=== PATIENT | female | born 1980 | race Caucasian/White ===

== ENCOUNTER 2023-02-01 11:36 | Emergency (ER) | payer MEDICARE, MEDICAID, SELFPAY ==
[2023-02-01 11:46] VITALS: BP 152/82; PULSE 71; RESP 20; O2SAT 98
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
[2023-02-01] MEDS: Ibuprofen 600 MG TAB PO (12:04)
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
--- OUTSIDE RECORDS SUMMARY | 2023-02-01 12:12 | XMS_ITS | Continuity of Care Document ---
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[employer] Name Role Phone ABDIRAHMANXIAO ACE Primary Care Physician Encounter BVT Date(s): 03/15/22 - 03/15/[address] [address]- [phone] Encounter Diagnosis Peripheral edema(Discharge Diagnosis) - 03/15/22 Discharge Disposition: Home or Self Care Attending Physician: ALEX ABDUL Admitting Physician: ALEX ABDUL Allergies, Adverse Reactions, Alerts Substance Reaction Severity Status Pollen Mild Active varenicline Unknown Active Haldol Unknown Active Assessment and Plan Extracted from: Title:General Medical Problem *ED Author:ALEX ABDUL Date:03/15/22 History of Present Illness The patient presents with Edema . The onset was 10 days ago. The course/duration of symptoms is constant and worsening. Location: lower extremity. The character of symptoms is swelling. Kourtney is a 41-year-old female who presents emergency department with report of atraumatic swelling in both of her lower legs. She reports this started approximately 10 days ago. She states she has had swelling in her extremities in the past generally takes spironolactone for this. She called her primary care provider and was restarted on spironolactone. She reports it is not seeming to be effective at this time. She reports swelling in both her feet, ankles and up into her lower legs. She reports she was starting to get indentations from her sandals. Kourtney has had no fevers, chills, or episodes of sweating. She denies any cough, sinus congestion, or sore throat. She is having no chest pain or difficulty breathing. She denies any headache, dizziness, neck, back, or abdominal pain. She has had no nausea, vomiting, or diarrhea. She denies any urinary symptoms. She reports feeling excessively fatigued. She states her doctor told her that some of her medications might increase her appetite and have weight gain particularly the Tegretol. Active Problems (4) Bipolar 1 disorder Disease caused by 2019 novel coronavirus Edema PTSD (post-traumatic stress disorder) Home Medications (5) Active hydrOXYzine OLANZapine spironolactone , Oral TEGretol , QID Vitamin D 1000 Allergies: Haldol varenicline Pollen Social history: Kourtney reports she smokes cigarettes occasionally. She does not drink alcohol. She does not use illicit drugs. She is not currently employed.. Review of Systems Constitutional symptoms: Fatigue, no fever, no chills, no sweats. ENMT symptoms: No sore throat, no nasal congestion. Respiratory symptoms: No shortness of breath, no cough. Cardiovascular symptoms: Peripheral edema, No chest pain, Gastrointestinal symptoms: No abdominal pain, no nausea, no vomiting, no diarrhea. Genitourinary symptoms: No urinary urgency, frequency, or dysuria. There is no current hematuria.. Musculoskeletal symptoms: No neck pain., No back pain, Neurologic symptoms: No headache, no dizziness. Health Status Allergies: Allergic Reactions (Selected) Mild Pollen- No reactions were documented. Unknown Haldol- No reactions were documented. Varenicline- No reactions were documented.. Medications: (Selected) Documented Medications Documented OLANZapine: 0 Refill(s) TEGretol: QID, 0 Refill(s) Vitamin D 1000: 0 Refill(s) hydrOXYzine: 0 Refill(s) spironolactone: Oral, 0 Refill(s). Past Medical/ Family/ Social History Medical history: No active or resolved past medical history items have been selected or recorded.. Surgical history: No active procedure history items have been selected or recorded.. Family history: No family history items have been selected or recorded.. Social history: Social & Psychosocial History Social History Alcohol Never Substance Abuse Past Current, Marijuana, 1-2 times per month Tobacco 10 or more cigarettes (1/2 pack or more)/day in last 30 days Tobacco Use:. Electronic Cigarette/Vaping Electronic Cigarette Use: Never. Psychosocial History No active psychosocial history has been recorded . Problem list: Active Problems (4) Bipolar 1 disorder Disease caused by 2019 novel coronavirus Edema PTSD (post-traumatic stress disorder) . Physical Examination Vital Signs Vital Signs 03/15/2022 17:11 EDT Temperature Temporal Artery 36.7 DegC Peripheral Pulse Rate 94 bpm Respiratory Rate 17 br/min Systolic Blood Pressure 133 mmHg Diastolic Blood Pressure 98 mmHg HI SpO2 99 % . General: Alert, no acute distress, Kourtney is sitting on the hospital stretcher. She is awake and alert. Her skin is warm and dry. Her respirations are even and unlabored. She is able to speak in full sentences. She currently peers to be in no acute distress.. Skin: Warm, dry. Head: Normocephalic. Neck: Supple. Eye: Normal conjunctiva. Ears, nose, mouth and throat: Oral mucosa moist. Cardiovascular: Regular rate and rhythm, No murmur, Normal peripheral perfusion, There is bilateral peripheral 1+ pitting edema to the lower extremities involving the feet, ankle, pretibial regions. . Respiratory: Lungs are clear to auscultation, respirations are non-labored, breath sounds are equal. Gastrointestinal: Soft, Nontender. Back: Nontender. Neurological: Alert and oriented to person, place, time, and situation, normal speech observed, normal coordination observed. Psychiatric: Cooperative, appropriate mood & affect. Medical Decision Making Rationale: Pleasant 41-year-old female presenting with bilateral lower extremity edema, history of something similar in the past but not so significant now rising to her lower legs, pitting edema not responding to her normal spironolactone. She has had no respiratory symptoms. She has no abdominal pain. Plan at this time is for labs include CBC, chemistries, troponin, BNP, chest x-ray and EKG we will continue to follow as diagnostic data becomes available.. Documents reviewed: Emergency department nurses' notes, emergency department records. Electrocardiogram: Time 03/15/2022 18:53:00, rate 86, normal sinus rhythm. Results review: Lab results : Lab View 03/15/2022 18:41 EDT WBC 12.0 x10(3)/uL HI RBC 4.34 x10(6)/uL Hgb 11.8 gm/dL Hct 36.5 % MCV 84.1 fL MCH 27.2 pg MCHC 32.3 gm/dL RDW-CV 16.0 % HI Platelet 283 x10(3)/uL MPV 8.7 fL LOW Neutro Auto 62.2 % Lymph Auto 23.7 % Potter Auto 9.3 % Eos Auto 3.2 % Basophil Auto 0.8 % Immature Gran % 0.80 % NRBC Auto Pct 0.00 % Neutro Absolute 7.45 x10(3)/uL HI Lymph Absolute 2.84 x10(3)/uL Potter Absolute 1.11 x10(3)/uL HI Eos Absolute 0.38 x10(3)/uL Basophil Absolute 0.09 x10(3)/uL Immature Gran Absolute 0.09 x10(3)/uL NA NRBC Absolute 0.00 x10(3)/uL PT 12.0 second(s) INR 0.92 NA Activated PTT 27.9 second(s) Sodium Lvl 135 mmol/L LOW Potassium Lvl 3.8 mmol/L Chloride 99 mmol/L CO2 25 mmol/L AGAP 14.8 mmol/L BUN 17 mg/dL Creatinine 0.49 mg/dL LOW GFR NonAfrican South African 138 mL/min/1.73 m2 Glucose Lvl 159 mg/dL HI Calcium Lvl 10.0 mg/dL Total Protein 6.6 gm/dL Albumin Lvl 4.00 gm/dL Alk Phos 121 IntUnit/L HI ALT 16 IntUnit/L AST 10 IntUnit/L Bili Total <0.2 mg/dL Osmolality 275.0 mOsm/kg Troponin-T <0.010 ng/mL Pro-BNP 19.8 pg/mL HCG Qualitative Serum Negative . Radiology results: X-ray (ST) X-Ray: ?? XR Chest 2 Views ?? 03/15/22 19:22:54 EXAMINATION: XR Chest 2 Views CLINICAL HISTORY: SOB TECHNIQUE: 2 views of the chest. COMPARISON: 12/03/2021. FINDINGS: No new or enlarging airspace opacity. No effusion. Cardiac mediastinal silhouette is stable. No interval osseous change. IMPRESSION: Accounting for technique and body habitus no acute pathology is identified. Thank you for letting us participate in the care of this patient. If you are a health care provider and have any questions regarding this report, please contact the number below. For patients who have questions please contact the health care mgr that requested your imaging first. Electronically signed by: Shereen Newman MD, [facility] ([phone]), at 03/15/2022 7:22 PM ?? Signed By: SHEREEN MARTIN . Reexamination/ Reevaluation Notes: Labs been obtained and reviewed. CBC shows a total white blood cell count elevated at 12.0. Hemoglobin normal 11.8, hematocrit normal at 36.5, platelets normal at 283. Coagulation studies normal at 0.92. CMP normal minus a sodium 135, creatinine of 0.49, glucose 159, alk phos of 121. Troponin T was less than 0.010. EKG sinus without evidence of STEMI. proBNP 19.8, normal. Chest x-ray allowing for technique and body habitus was unremarkable. I reviewed the testing results with Kourtney. Discussed the uncertain etiology of her worsening peripheral edema. This may be multifactorial, peripheral vascular disease advised to get compression stockings. We will do a 2-day treatment of furosemide she will hold her spironolactone while on the furosemide and restart the spironolactone on Friday. She was advised to call her primary care provider on Friday for repeat evaluation. We discussed return precautions to the emergency department should any of her symptoms change or worsen. Plan at this time is for discharge home.. Impression and Plan Diagnosis Peripheral edema ([id number] R60.9, Discharge, Medical) Plan Condition: Stable. Disposition: Discharged: to home. Prescriptions: Launch prescriptions Pharmacy: Lasix 20 mg oral tablet (Prescribe): 1 cap(s), Oral, Daily, for 2 day(s), 2 cap(s), 0 Refill(s). Patient was given the following educational materials: Edema. Follow up with: XIAO IRENE The blood test today showed no evidence of heart problems or liver problems. The exact cause of the swelling in your feet is unknown but may be related to peripheral vascular disease. We will increase your water pill for 2 days, hold the spironolactone while on the furosemide. Call your primary care provider first thing Friday morning to arrange for a repeat evaluation. Please return directly to the emergency department should any of your symptoms change or worsen.. Counseled: Patient, Friend, Regarding diagnosis, Regarding diagnostic results, Regarding treatment plan, Regarding prescription, Patient indicated understanding of instructions. Future Appointments Future Scheduled Tests Radiology* XR Wrist 3 Views Min Rt 11/08/21 Functional Status 03/15/22 History of Fall in Last 3 Months Roche N o Recent Travel History No recent travel Family Member Travel History No recent t january COVID-19 Screening None Medications hydrOXYzine 0 Refill(s) Start Date: 08/23/21 Status: Ordered Lasix 20 mg oral tablet = 1 cap(s), Oral, Daily, # 2 cap(s), 0 Refill(s), Pharmacy: [id number] [facility] #, 1 cap(s)Oral Daily,x2 [...] Status Inform ant Bipolar 1 disorder(Confirmed) Active Disease caused by 2019 novel coronavirus(Confirmed) 1 12/03/21 Active Edema(Confirmed) Active PTSD (post-traumatic stress disorder)(Confirmed) Active 1Problem added by Rule (IC_COVID19_AUTO_PROBLEM) following SARS-CoV-2 (COVID- 19)/Flu/RSV (GeneXpert)from Nasal Swab collected on 03-DEC-2021 14:35:00 EST tested positive for COVID-19. Results Laboratory List Name Date APTT 03/15/22 Automated Differential Standard 03/15/22 CBC w/Diff Standard 03/15/22 Comprehensive Metabolic Panel Standard ( CMP Standard) 03/15/22 PT (PT/INR) 03/15/22 Test Serum Standard 03/15/22 Pro-BNP (BNP (proBNP)) 03/15/22 Troponin-T 03/15/22 Most recent to oldest [Reference Range]: 1 Activated PTT [26.0-40.0 second(s)] 27.9 second(s) (03/15/22:41 PM) NRBC Auto Pct [0.00-0.20 %] 0.00 % (03/15/22:41 PM) Creatinine [0.50-0.90 mg/dL] 0.49 mg/dL *LOW* (03/15/22:41 PM) INR 0.92 *NA* (03/15/22 PM) AGAP [10.0-18.0 mmol/L] 14.8 mmol/L (03/15/22:41 PM) Glucose Lvl [70-100 mg/dL] 159 mg/dL *HI* (03/15/22 PM) Hct [34.1-44.9 %] 36.5 % (03/15/2241 PM) Hgb [11.5-15.7 gm/dL] 11.8 gm/dL (03/15/22:41 PM) Lymph Auto [15.0-45.0 %] 23.7 % (03/15/22:41 PM) MCH [25.6-32.2 pg] 27.2 pg (03/15/22:41 PM) MCHC [32.3-36.5 gm/dL] 32.3 gm/dL (03/15/22:41 PM) MCV [79.4-94.8 fL] 84.1 fL (03/15/22:41 PM) Potter Auto [4.0-14.0 %] 9.3 % (03/15/2241 PM) MPV [9.4-12.4 fL] 8.7 fL *LOW* (03/15/22:41 PM) Neutro Auto [50.0-75.0 %] 62.2 % (03/15/22:41 PM) Osmolality [268.0-291.0 mOsm/kg] 275.0 m Osm/kg (03/15/22:41 PM) Platelet [150-400 x10(3)/uL] 283 x10(3)/ uL (03/15/22 6:41 PM) PT [11.0-14.5 second(s)] 12.0 second(s) (03/15/22 6:41 PM) RBC [3.93-5.22 x10(6)/uL] 4.34 x10(6)/uL (03/15/22 6:41 PM) Sodium Lvl [136-145 mmol/L] 135 mmol/L *LOW* (03/15/22 6:41 PM) Total Protein [6.6-8.7 gm/dL] 6.6 gm/dL (03/15/22 6:41 PM) Albumin Lvl [3.50-5.20 gm/dL] 4.00 gm/dL (03/15/22 6:41 PM) Alk Phos [35-105 IntUnit/L] 121 IntUnit/ L *HI* (03/15/22 6:41 PM) ALT [0-33 IntUnit/L] 16 IntUnit/L (03/15/22 6:41 PM) AST [0-32 IntUnit/L] 10 IntUnit/L (03/15/22 6:41 PM) Basophil Auto [0.0-2.0 %] 0.8 % (03/15/22 6:41 PM) Bili Total [0.0-1.3 mg/dL] <0.2 mg/dL (03/15/22 6:41 PM) CO2 [22-29 mmol/L] 25 mmol/L (03/15/22 6:41 PM) Eos Auto [0.0-8.0 %] 3.2 % (03/15/22 6:41 PM) WBC [4.0-10.0 x10(3)/uL] 12.0 x10(3)/uL *HI* (03/15/22 6:41 PM) BUN [6-23 mg/dL] 17 mg/dL (03/15/22 6:41 PM) Calcium Lvl [8.6-10.2 mg/dL] 10.0 mg/dL (03/15/22 6:41 PM) Chloride [98-107 mmol/L] 99 mmol/L (03/15/22 6:41 PM) Potassium Lvl [3.5-5.1 mmol/L] 3.8 mmol/ L (03/15/22 6:41 PM) Troponin-T [0.000-0.029 ng/mL] <0.010 ng /mL (03/15/22 6:41 PM) Lymph Absolute [1.20-3.70 x10(3)/uL] 2.8 4 x10(3)/uL (03/15/22 6:41 PM) Potter Absolute [0.20-0.40 x10(3)/uL] 1.11 x10(3)/uL *HI* (03/15/22 6:41 PM) Eos Absolute [0.04-0.54 x10(3)/uL] 0.38 x10(3)/uL (03/15/22 6:41 PM) NRBC Absolute [0.00-0.01 x10(3)/uL] 0.00 x10(3)/uL (03/15/22 6:41 PM) Neutro Absolute [1.56-6.13 x10(3)/uL] 7. 45 x10(3)/uL *HI* (03/15/22 6:41 PM) RDW-CV [11.7-14.4 %] 16.0 % *HI* (03/15/22 6:41 PM) Pro-BNP [0.0-125.0 pg/mL] 19.8 pg/mL (03/15/22 6:41 PM) GFR NonAfrican South African [>=60 mL/min/1.7 3 m2] 138 mL/min/1.73 m2 (03/15/22 6:41 PM) Immature Gran % [0.00-2.30 %] 0.80 % (03/15/22 6:41 PM) Immature Gran Absolute 0.09 x10(3)/uL *NA* (03/15/22 6:41 PM) HCG Qualitative Serum [Negative] Negativ e (03/15/22 6:41 PM) Basophil Absolute [0.00-0.10 x10(3)/uL] 0.09 x10(3)/uL (03/15/22 6:41 PM) Radiology Reports * Exam Date Time Procedure Performing Provider Status 03/15/22 6:48 PM XR Chest 2 Views Kailash, Rosalind; Auth (Jovi ified) Notes: (XR Chest 2 Views) Reason For Exam: SOB XR Chest 2 Views EXAMINATION: XR Chest 2 Views CLINICAL HISTORY: SOB TECHNIQUE: 2 views of the chest. COMPARISON: 12/03/2021. FINDINGS: No new or enlarging airspace opacity. No effusion. Cardiac mediastinal silhouette is stable. No interval osseous change. IMPRESSION: Accounting for technique and body habitus no acute pathology is identified. Thank you for letting us participate in the care of this patient. If you are a health care provider and have any questions regarding this report, please contact the number below. For patients who have questions please contact the health care mgr that requested your imaging first. Electronically signed by: Shereen Newman MD, [facility] ([phone]), at 03/15/2022 7:22 PM Final Dictated: 03/15/2022 7:22 pm SHEREEN MARTIN Signed (Electronic Signature): 03/15/2022 7:22 pm Signed by: SHEREEN MARTIN Vital Signs Most recent to oldest [Reference Range]: 1 2 Temperature Temporal Artery [36.3-37.8 D egC] 36.7 DegC (03/15/22 5:11 PM) Peripheral Pulse Rate [60-100 bpm] 86 bp m (03/15/22 8:17 PM) 94 bpm (03/15/22 5:11 PM) Respiratory Rate [14-20 br/min] 17 br/mi n (03/15/22 5:11 PM) Blood Pressure [90-140/60-90 mmHg] 135/6 4mmHg (03/15/22 8:17 PM) 133/98mmHg (03/15/22 5:11 PM) Mean Arterial Pressure, Cuff [65-100 mmH g] 88 mmHg (03/15/22 8:17 PM) Mean Arterial Pressure Cuff-Monitor 82 m mHg (03/15/22 8:17 PM) SpO2 [92-100 %] 98 % (03/15/22 8:17 PM) 99 % (03/15/22 5:11 PM) Height 170.000 cm (03/15/22 5:11 PM) Height/Length Dosing 170.000 cm (03/15/22 5:22 PM) Weight 146.000 kg (03/15/22 5:11 PM) Weight Dosing 146.000 kg (03/15/22 5:22 PM) Social History Social History Type Response Smoking Status 10 or more cigarette s (1/2 pack or more)/day in last 30 days entered on: 08/23/21 Sex Hospital Discharge Instructions Patient Education 03/15/2022 20:10:57 Edema Edema Edema is an abnormal buildup of fluids in the body tissues and under the skin. Swelling of the legs, feet, and ankles is a common symptom that becomes more likely as you get older. Swelling is also common in looser tissues, like around the eyes. When the affected area is squeezed, the fluid may move out of that spot and leave a dent for a few moments. This dent is called pitting edema. There are many possible causes of edema. Eating too much salt (sodium) and being on your feet or sitting for a long time can cause edema in your legs, feet, and ankles. Hot weather may make edema worse. Common causes of edema include: ??? Heart failure. ??? Liver or kidney disease. ??? Weak leg blood vessels. ??? Cancer. ??? An injury. ??? . ??? Medicines. ??? Being obese. ??? Low protein levels in the blood. Edema is usually painless. Your skin may look swollen or shiny. Follow these instructions at home: ??? Keep the affected body part raised (elevated) above the level of your heart when you are sitting or lying down. ??? Do not sit still or stand for long periods of time. ??? Do not wear tight clothing. Do not wear garters on your upper legs. ??? Exercise your legs to get your circulation going. This helps to move the fluid back into your blood vessels, and it may help the swelling go down. ??? Wear elastic bandages or support stockings to reduce swelling as told by your health care provider. ??? Eat a low-salt (low-sodium) diet to reduce fluid as told by your health care provider. ??? Depending on the cause of your swelling, you may need to limit how much fluid you drink (fluid restriction). ??? Take [id number] and prescription medicines only as told by your health care provider. Contact a health care provider if: ??? Your edema does not get better with treatment. ??? You have heart, liver, or kidney disease and have symptoms of edema. ??? You have sudden and unexplained weight gain. Get help right away if: ??? You develop shortness of breath or chest pain. ??? You cannot breathe when you lie down. ??? You develop pain, redness, or warmth in the swollen areas. ??? You have heart, liver, or kidney disease and suddenly get edema. ??? You have a fever and your symptoms suddenly get worse. Summary ??? Edema is an abnormal buildup of fluids in the body tissues and under the skin. ??? Eating too much salt (sodium) and being on your feet or sitting for a long time can cause edemain your legs, feet, and ankles. ??? Keep the affected body part raised (elevated) above the level of your heart when you are sitting or lying down. This information is not intended to replace advice given to you by your health care provider. Make sure you discuss any questions you have with your health care provider. Document Revised: 03/15/2020 Document Reviewed: 11/29/2017 [employer] Patient Education ?? 2020 [employer]. Follow Up Care 03/15/2022 17:01:46 With:XIAO IRENE Address: [address] [place] [id number] Business (1) When: Unknown Comments:The blood test today showed no evidence of heart problems or liver problems.The exact cause of the swelling in your feet is unknown but may be related to peripheral vascular disease.We will increase your water pill for 2 days, hold the spironolactone while on the furosemide.Call your primary care pr ovider first thing Friday morning to arrange for a repeat evaluation.Please return directly to the emergency department should any of your symptoms change or worsen. Note * SHEREEN MARTIN: VERIFY, VERIFY, PERFORM Event Display: Report Authored Date: EXAMINATION: XR Chest 2 Views CLINICAL HISTORY: SOB TECHNIQUE: 2 views of the chest. COMPARISON: 12/03/2021. FINDINGS: No new or enlarging airspace opacity. No effusion. Cardiac mediastinal silhouette is stable. No interval osseous change. IMPRESSION: Accounting for technique and body habitus no acute pathology is identified. Thank you for letting us participate in the care of this patient. If you are a health care provider and have any questions regarding this report, please contact the number below. For patients who have questions please contact the health care mgr that requested your imaging first. Electronically signed by: Shereen Newman MD, [facility] ([phone]), at 03/15/2022 7:22 PM Final Dictated: 03/15/2022 7:22 pm SHEREEN MARTIN Signed (Electronic Signature): 03/15/2022 7:22 pm Signed by: SHEREEN MARTIN Care Team Personnel Name: XIAO IRENE [address]: [address] [place], [place] [id number]
--- OUTSIDE RECORDS SUMMARY | 2023-02-01 12:12 | XMS_ITS | Continuity of Care Document ---
Author Name Unknown Organization [facility] Address [address] [place] [id number] Care Team Providers Care Criminal Attorney Name Role Phone XIAO IRENE Primary Care Physician Encounter BVT Date(s): 11/21/22 - 11/22/[address] [id number] [phone] Encounter Diagnosis Acute respiratory failure with hypoxia and hypercapnia(Discharge Diagnosis) - 11/22/22 Acute hyperglycemia(Discharge Diagnosis) - 11/22/22 Accidental drug overdose(Discharge Diagnosis) - 11/22/22 Leukocytosis(Discharge Diagnosis) - 11/22/22 Discharge Disposition: Another Hospital Attending Physician: KELSIE JOHNSTON MD Admitting Physician: KELSIE JOHNSTON MD Allergies, Adverse Reactions, Alerts Substance Reaction Severity Status Pollen Mild Active varenicline Unknown Active Haldol Unknown Active Assessment and Plan Extracted from: Title:Addendum *ED Author:Angelia Amador MD Charbel e:11/22/22 Patient: KOURTNEY COFFEY Age: 42 years Sex: Female : 1980 Associated Diagnoses: Leukocytosis Author: Angelia Amador MD Basic Information Addendum: Time of addendum:: 11/22/2022 01:26:00 , Assumed care from: KELSIE JOHNSTON MD, Time 11/21/2022 23:00:00. Medical Decision Making I received signout on this pt from Dr. Johnston. Pt is a 42 yo female who was brought in by EMS for a possible overdose. She was initially responsive to narcan but became progressively more obtunded, progressing to acute hypoxic hypercarbic respiratory failure. remainder of any preceding history was severely limited by pt's respiratory and mental status. On my evaluation, pt was obtunded, with sonorous respirations in the rate of 6-12, pinpoint reactive pupils. She received an additional 12mg of narcan with me with no response. At this point, although her mental status was likely poor due to severe hypercarbia and hypoxemia, we added a CT brain to rule out other causes of AMS which was negative. Prior to becoming obtunded, she apparently had no focal neurologic deficits, reassuring against any MOLD SHAKER etiology of her AMS. There was likely a component of obesity hypoventilation as well as possible aspiratrion given the atelectasis/infiltrate seen on her R lung. She received antibiotic coverage for possible pneumonia given here severe hypoxemia and her elevated WBC. I considered the diagnosis of DKA given her acidosis and elevated blood glucose but she had a normal anion gap and her acidosis was respiratory in etiology so this was not consistent with DKA. At this point, given that there was no improvement in her mental status despite a large dose of naloxone and appropriate oxygenation, the decision was made to proceed with intubation for airway protection. Her mental status was too poor for NIPPV. See intubation procedure note. After intubation, pt's etCO2 dropped from 120s-80s and she became slightly more responsive but still with pinpoint pupils. Due to this, pt was started on propofol gtt and subsequently ketamine was added with good effect. We contacted [facility], [facility], [facility], [facility], and [facility], all of whom did not have capacity to accept the transfer. We discussed with [facility] and pt was accepted for transfer to [facility] ICU under Dr. Davenport. Repeat gas was pending. Results review: Lab results : Lab View 11/22/2022 0:50 EST UA Color YELLOW UA Clarity CLEAR UA Spec Grav 1.025 UA Bili NEGATIVE UA pH 5.5 UA Urobilinogen 0.2 EU/dL UA Blood Trace UA Glucose >=1000 mg/dL UA Ketones TRACE UA Protein Trace UA Nitrite NEGATIVE UA Leuk Est NEGATIVE Urine Culture? No Urine Culture? No Micro? Indicated UA WBC 0-2 UA RBC 5-10 UA Mucous Moderate UA Bacteria Rare UA Hyal Cast Rare UA Squam Epi Rare U Amph Scr Negative U Shayy Scr Negative U Benzodia Scr Negative U Buprenorphine Scr Positive U Cocaine Scr Negative U mAMP Scr Negative U Methadone Scr Negative U Opiate Scr Negative U OXY Scr Negative U PCP Scr Negative U PPX Scr Negative U TCA Scr Negative U THC Scr Positive Fentanyl Interp Negative 11/21/2022 23:14 EST SARS-CoV-2 (COVID-19) PCR (GeneXpert) Negative Employed in healthcare? No Symptomatic as defined by CDC? No Hospitalized due to COVID-19? No In ICU? No Group care resident? No status? Not Acetaminoph Lvl <5.0 ug/mL LOW Salicylate Lvl <0.3 mg/dL LOW RSV (Flu/RSV) -GeneXpert Negative Influenza A (Influenza/RSV) -GeneXpert Negative Influenza B (Influenza/RSV) Negative 11/21/2022 22:48 EST tHb Venous 13 SO2 Venous 99.3 HI pH Manuel 7.13 CRIT pO2 Manuel 211 CRIT pCO2 Manuel 77 CRIT FiO2 Venous 80.0 % NA HCO3 Manuel 24.6 NA COHb Venous 5.5 % CRIT MetHb Venous 0.0 O2Hb Venous 93.8 CRIT BE Venous -6.1 NA Blood Gas Sample Arterial Dt/Time Notified 11/21/2022 10:55 PM Notified By Camille Notified Whom Nacho Johnston O2 Device NRB LM 15 NA 11/21/2022 20:52 EST Ketone (BHB), Serum Quant 0.50 mmol/L HI 11/21/2022 20:38 EST WBC 28.0 x10(3)/uL CRIT RBC 4.91 x10(6)/uL Hgb 12.4 gm/dL Hct 40.9 % MCV 83.3 fL MCH 25.3 pg LOW MCHC 30.3 gm/dL LOW RDW-CV 16.5 % HI Platelet 369 x10(3)/uL MPV 8.5 fL LOW Neutro Auto 85.1 % HI Lymph Auto 8.6 % LOW Stephenson Auto 3.3 % LOW Eos Auto 0.7 % Basophil Auto 0.4 % NRBC Auto Pct 0.00 % Neutro Absolute 23.83 x10(3)/uL HI Lymph Absolute 2.41 x10(3)/uL Stephenson Absolute 0.91 x10(3)/uL HI Eos Absolute 0.20 x10(3)/uL NRBC Absolute 0.00 x10(3)/uL Basophil Absolute 0.10 x10(3)/uL Immature Gran % 1.90 % Immature Gran Absolute 0.52 x10(3)/uL NA Sodium Lvl 133 mmol/L LOW Potassium Lvl 3.7 mmol/L Chloride 95 mmol/L LOW CO2 25 mmol/L AGAP 16.7 mmol/L BUN 12 mg/dL Creatinine 0.79 mg/dL Glucose Lvl 394 mg/dL HI Calcium Lvl 9.7 mg/dL Osmolality 282.6 mOsm/kg eGFR CKD-EPI 94.53 mL/min/1.73 m2 . Chest X-Ray: Interpretation by Emergency Physician, post intubation cxr with ett in good position. Radiology results: X-ray (ST) X-Ray: ?? XR Chest 1 View Portable ?? 11/22/22 01:20:55 EXAMINATION: XR Chest 1 View Portable CLINICAL HISTORY: post intubation TECHNIQUE: AP chest radiograph, single image COMPARISON: Chest radiograph 11/21/2022 FINDINGS: Endotracheal tube tip projects over the mid trachea, 5.1 cm above the terri. Enteric tube projects below the diaphragm, tip not included the [id number]. EKG leads project over the thorax. There are low bilateral lung volumes bronchovascular crowding at the lung bases. No focal consolidation to suggest pneumonia. No pulmonary vascular congestion. No pneumothorax. No pleural effusions. Unchanged size of the cardiomediastinal silhouette and bilateral ximena. Healed fracture deformity of lateral right fifth rib and sixth rib. IMPRESSION: 1. Appropriate position of endotracheal tube. 2. Enteric tube projects below the diaphragm. 3. Low bilateral lung volumes. Thank you for letting us participate in the care of this patient. If you are a health care provider and have any questions regarding this report, please contact the number below. For patients who have questions please contact the health child care cook that requested your imaging first. ?? Signed By: ALVARO EASLEY ?? XR Chest 1 View Portable ?? 11/21/22 21:26:43 EXAMINATION: XR Chest 1 View Portable CLINICAL HISTORY: sob TECHNIQUE: AP portable view the chest COMPARISON: 03/15/2022 FINDINGS: Blurring of the left hemidiaphragm laterally with added radiodensity over the cardiac silhouette on the left primarily laterally. Right lung appears clear. Cardiac and mediastinal contours are unchanged. Pulmonary vasculature within normal limits for position and body habitus. IMPRESSION: Left lower lung zone airless lung, atelectasis, consolidation or effusion. Thank you for letting us participate in the care of this patient. If you are a health care provider and have any questions regarding this report, please contact the number below. For patients who have questions please contact the health child care cook that requested your imaging first. ?? Signed By: HAMZAH MAKI , CT (ST) Computed Tomography: ?? CT Head or Brain w/o Contrast ?? 11/22/22 00:12:21 EXAMINATION: CT Head or Brain w/o Contrast CLINICAL HISTORY: head injury TECHNIQUE: CT head performed without intravenous contrast administration. COMPARISON: 12/03/2021 FINDINGS: Limited by motion. Review of bone windows demonstrates clear appearance visualized mastoid air cells, middle ear cavities. There is material projecting in the sphenoid sinus with possible air-fluid level on the right. Small amount of mucosal thickening at the frontoethmoidal recess bilaterally. No lytic or blastic disease of the calvarium. There is no intracranial hemorrhage, mass, mass effect, midline shift or extra-axial fluid collection. No ventriculomegaly. No cortical infarctions. IMPRESSION: No acute intracranial abnormality. Thank you for letting us participate in the care of this patient. If you are a health care provider and have any questions regarding this report, please contact the number below. For patients who have questions please contact the health child care cook that requested your imaging first. ?? Signed By: MAKI, JEROME , emergency physician interpretation: ct brain - reviewed by myself and interpreted with no acute intracranial process. Reexamination/ Reevaluation Vital signs Basic Oxygen Information 11/21/2022 21:15 EST Oxygen Therapy Nonrebreather mask Oxygen Flow Rate 15 L/min 11/21/2022 21:00 EST Oxygen Therapy Nonrebreather mask Oxygen Flow Rate 15 L/min 11/21/2022 20:45 EST Oxygen Therapy Nonrebreather mask Oxygen Flow Rate 15 L/min 11/21/2022 20:30 EST Oxygen Therapy Nasal cannula Oxygen Flow Rate 6 L/min 11/21/2022 20:15 EST Oxygen Therapy Nasal cannula Oxygen Flow Rate 6 L/min 11/21/2022 20:11 EST Oxygen Therapy Room air 2:59am: as pt was ready for transport, her SBP and MAPs decreased, necessitating initiation of vasopressors. We notified the accepting hospital and they requested a central line prior to transport. This was placed. see procedure note for details. Pt was noted to have extremely low lung volumes, even at an IBW of 63kg with lung protective ventilation. her peak pressures were high. we increased the peep to help with recruitment and peak pressures did not increase. she has been intermittently hypoxemic even on high ventilator settings, concern that she is developing ARDS. Procedure Endotracheal intubation Time: 11/22/2022 00:30:00 . Confirmed: Patient, procedure, and site correct, Time-out taken prior to procedure. Consent: Emergent. Indication: Respiratory failure, Airway protection. Airway assessment: Mallampati class: IV-hard palate only, Pre-procedure O2 saturation 94 %, on 15L NRB, pt with significant obesity, making her a high risk intubation. Pt was satting 94% on NRB prior to intubation. We prepared a video stylet as well as bougie assisted intubation and DL as backups. She was placed in reverse trendelenberg to aid in intubation. Procedural sedation: None. Monitoring: Cardiac, blood pressure, continuous pulse oximetry, See nurse's notes. Preparation: Pre oxygenated, Ensured proper cuff inflation. Technique: Oral intubation: A 7.5 ET tube was inserted, using a curved blade, Secured: measures 23 cm at the lips, Video scope. Confirmation of tube placement: Bilateral chest rise, Positive color change indicated on end title CO2, Chest x-ray. Post procedure exam: Equal breath sounds, 02 sat 99 %, No epigastric breath sounds, Clinically improved. Post procedure management: Propofol , Ventilator settings as documented. Complications: None. Performed by: Self. Line Placement Time: 11/22/2022 03:01:00 . Confirmed: Patient, procedure, side, and site correct, Time-out taken prior to procedure. Consent: Emergent. Indication: Hemodynamically unstable. Procedural sedation: None. Monitoring: Cardiac, blood pressure, continuous pulse oximetry. Location: Right, Internal jugular vein. Preparation: Sterile field established, landmarks identified, Skin prepped with chlorhexidine, Local anesthesia: none. central venous line: 7.5 [place] triple lumen, Seldinger technique utilized for line placement, 1 attempts, Secured at 15 cm , following procedure. Post-procedure: Adequate blood return observed, Adequate fluid flow observed, Bilateral breath sounds, Circulation, motor, sensory exam intact. Patient tolerated: Well. Complications: None. Performed by: Self. Critical care note Total time: 120 minutes spent engaged in work directly related to patient care and/ or available for direct patient care, exclusive of procedure time, which included endotracheal intubation. Critical condition(s) addressed for impending deterioration include: airway, metabolic. Associated risk factors: hypoxia, acidosis, drug or med overdose. Management: bedside assessment, Interpretation (chest x-ray, blood gases, blood pressure), Interventions ventilator management, Case review healthcare or medical, Alternate history emergency medical services. Treatment response: improved and stabilized on ventilator and sedated. Performed by: self. Impression and Plan Diagnosis Leukocytosis ([id number] D72.829, Discharge, Medical) Plan Condition: Critical. Addendum by Angelia Amador MD on November 22, 2022 3:09 EST post central line chest xray reviewed an d interpreted by me, line in appropriate position. no ptx Extracted from: Title:General Medical Problem *ED - AMS Author:KELSIE PYLE MD Date:11/22/22 Review of Systems Cannot perform due to AMS Physical Examination Vital Signs Vital Signs 11/22/2022 0:22 EST Peripheral Pulse Rate 82 bpm Heart Rate Monitored 83 bpm Respiratory Rate 20 br/min Systolic Blood Pressure 156 mmHg HI Diastolic Blood Pressure 76 mmHg Mean Arterial Pressure, Cuff 103 mmHg Mean Arterial Pressure Cuff-Monitor 96 mmHg SpO2 80 % LOW 11/22/2022 0:08 EST Peripheral Pulse Rate 84 bpm Heart Rate Monitored 85 bpm Respiratory Rate 9 br/min LOW Systolic Blood Pressure 164 mmHg HI Diastolic Blood Pressure 84 mmHg Mean Arterial Pressure, Cuff 111 mmHg HI Mean Arterial Pressure Cuff-Monitor 106 mmHg SpO2 95 % 11/21/2022 23:15 EST Peripheral Pulse Rate 95 bpm Heart Rate Monitored 95 bpm Respiratory Rate 13 br/min LOW Systolic Blood Pressure 131 mmHg Diastolic Blood Pressure 66 mmHg Mean Arterial Pressure, Cuff 88 mmHg Mean Arterial Pressure Cuff-Monitor 86 mmHg SpO2 81 % LOW 11/21/2022 23:00 EST Peripheral Pulse Rate 95 bpm Heart Rate Monitored 95 bpm Respiratory Rate 10 br/min LOW Systolic Blood Pressure 131 mmHg Diastolic Blood Pressure 66 mmHg Mean Arterial Pressure, Cuff 88 mmHg Mean Arterial Pressure Cuff-Monitor 86 mmHg SpO2 96 % 11/21/2022 22:45 EST Peripheral Pulse Rate 96 bpm Heart Rate Monitored 96 bpm Respiratory Rate 10 br/min LOW SpO2 95 % 11/21/2022 22:30 EST Peripheral Pulse Rate 97 bpm Heart Rate Monitored 97 bpm Respiratory Rate 16 br/min SpO2 97 % 11/21/2022 22:25 EST Peripheral Pulse Rate 96 bpm Heart Rate Monitored 96 bpm Respiratory Rate 10 br/min LOW Systolic Blood Pressure 176 mmHg HI Diastolic Blood Pressure 83 mmHg Mean Arterial Pressure, Cuff 114 mmHg HI Mean Arterial Pressure Cuff-Monitor 103 mmHg SpO2 97 % 11/21/2022 21:53 EST Peripheral Pulse Rate 92 bpm Heart Rate Monitored 94 bpm Respiratory Rate 21 br/min HI Systolic Blood Pressure 181 mmHg HI Diastolic Blood Pressure 78 mmHg Mean Arterial Pressure, Cuff 112 mmHg HI SpO2 98 % 11/21/2022 21:15 EST Peripheral Pulse Rate 103 bpm HI Heart Rate Monitored 103 bpm HI Respiratory Rate 17 br/min Systolic Blood Pressure 182 mmHg HI Diastolic Blood Pressure 99 mmHg HI Mean Arterial Pressure, Cuff 127 mmHg >HHI Mean Arterial Pressure Cuff-Monitor 121 mmHg SpO2 99 % 11/21/2022 21:00 EST Peripheral Pulse Rate 106 bpm HI Heart Rate Monitored 109 bpm HI Respiratory Rate 23 br/min HI Systolic Blood Pressure 165 mmHg HI Diastolic Blood Pressure 77 mmHg Mean Arterial Pressure, Cuff 106 mmHg Mean Arterial Pressure Cuff-Monitor 98 mmHg SpO2 100 % 11/21/2022 20:45 EST Peripheral Pulse Rate 96 bpm Heart Rate Monitored 96 bpm Respiratory Rate 11 br/min LOW Systolic Blood Pressure 164 mmHg HI Diastolic Blood Pressure 87 mmHg Mean Arterial Pressure, Cuff 113 mmHg HI Mean Arterial Pressure Cuff-Monitor 108 mmHg SpO2 84 % LOW 11/21/2022 20:30 EST Peripheral Pulse Rate 91 bpm Heart Rate Monitored 89 bpm Respiratory Rate 12 br/min LOW Systolic Blood Pressure 148 mmHg HI Diastolic Blood Pressure 138 mmHg HI Mean Arterial Pressure, Cuff 141 mmHg >HHI Mean Arterial Pressure Cuff-Monitor 143 mmHg 11/21/2022 20:15 EST Systolic Blood Pressure 193 mmHg HI Diastolic Blood Pressure 173 mmHg HI Mean Arterial Pressure, Cuff 180 mmHg >HHI Mean Arterial Pressure Cuff-Monitor 182 mmHg 11/21/2022 20:11 EST Temperature Temporal Artery 35.8 DegC LOW Peripheral Pulse Rate 98 bpm Respiratory Rate 12 br/min LOW Systolic Blood Pressure 143 mmHg HI Diastolic Blood Pressure 80 mmHg SpO2 70 % LOW Oxygen Activity Initiate . General: patient wakes to mild pain stimulation, wakens quickly and stating that she needs the bathroom or has wet socks, quickly falls back asleep without stimulation. Skin: Warm, dry. Head: Atraumatic. Neck: Supple. Eye: Normal conjunctiva, pinpoint pupils bilaterally. Cardiovascular: Regular rate and rhythm. Respiratory: Lungs are clear to auscultation, breath sounds are equal, decreased respiratory rate, lungs clear b/l, sonorous respirations. Gastrointestinal: Soft, Nontender, Non distended. Neurological: patient with sonorous breathing, wakens to mild painful stimuli, moving all limbs to command, quickly falls asleep without stimuli. Psychiatric Medical Decision Making Patient presents with concerns for opioid use. States yes to my question about using drugs but unable to get more information out of her. EMS gave 6mg of IN narcan with improvement in patients breathing, they did have to bag for a few breaths due to hypoxemia. When patient arrived we gave 2mg of narcan with improvement. While in the ED patients ET has risen and her mental status has worsened. Patient received 6mg in the field with improvement, initially responded to another 2mg, however with worsening mental status we gave higher doses of narcan, without significant improvement. Still w bilateral pinpoint pupils and RR <10. O2 is wnl but ET is elevated. Labs show elevated white blood cell count, negative COVID, elevated glucose, mildly elevated ketones, however without any anion gap. EG shows pH of 7.13 with a PCO2 of 77. Started on fluids and antibiotics after her white blood cell count showed elevation. Afebrile on presentation. CXR w possible pna. W worsening mental status we obtained CT head without ICH. Patient with hypercapnic respiratory failure, intubated by Dr. Amador and SO to Dr. Amador pending placement. Future Appointments Future Scheduled Tests Laboratory* Hemoglobin A1c DC 11/04/22 * Comprehensive Metabolic Panel Standard 11/04/22 Functional Status 11/21/22 COVID-19 Screening None Immunizations Given and Recorded Vaccine Date Status Refusal Reason Tdap 04/19/22 Given SARS-CoV-2 (COVID-19) mRNA-1273 vaccine 11/29/21 R ecorded SARS-CoV-2 (COVID-19) Ad26 vaccine 08/02/21 Record ed Medications !-Keflex 500 mg oral capsule 500 mg = 1 cap(s), Oral, QID, # 28 cap(s), 0 Refill(s), [id number], 1 cap(s) Oral QID,x7 day(s), 166, cm, 05/13/22 17:41:00 EDT, Height/Length Dosing, 150, kg, 05/13/22 17:41:00 EDT, Weight Dosing Start Date: 05/13/22 Stop Date: 05/20/22 Status: Ordered ARIPiprazole 10 mg oral tablet 10 mg = 1 tab(s), Oral, HS, Dr Kline, 0 Refill(s) Start Date: 10/11/22 Status: Ordered carBAMazepine 200 mg oral tablet = 2 tab(s), Oral, BID, # 120 tab(s), 0 Refill(s), Pharmacy: [facility] #[id number], 2 tab(s) Oral BID, 166, cm, 05/13/22 17:41:00 EDT, Height/Length Dosing, 150, kg, 05/13/22 17:41:00 EDT, Weight Dosing Start Date: 10/10/22 Status: Ordered docusate sodium 100 mg oral capsule 100 mg = 1 cap(s), Oral, Daily, PRN PRN for constipation, # 20 cap(s), 0 Refill(s) Start Date: 05/01/22 Status: Ordered furosemide 20 mg oral tablet 20 mg = 1 tab(s), Oral, Daily, 1 tab po for 2 days, 0 Refill(s) Start Date: 05/01/22 Status: Ordered hydroCHLOROthiazide 12.5 mg oral capsule 12.5 mg = 1 cap(s), Oral, Daily, # 90 cap(s), 3 Refill(s), Pharmacy: [facility] #[id number], 1cap(s) Oral Daily, 166, cm, 05/13/22 17:41:00 EDT, Height/Length Dosing, 150, kg, 05/13/22 17:41:00EDT, Weight Dosing Start Date: 05/14/22 Status: Ordered hydrOXYzine pamoate 25 mg oral capsule 25 mg = 1 cap(s), Oral, BID, 0 Refill(s) Start Date: 05/01/22 Status: Ordered Keto Keto, Diet pill, 0 Refill(s) Start Date: 03/19/22 Status: Ordered lurasidone 40 mg oral tablet 40 mg = 1 tab(s), Oral, Daily, Dr Kline, 0 Refill(s) Start Date: 10/11/22 Status: Ordered Multi Vitamin+ 0 Refill(s) Start Date: 04/19/22 Status: Ordered Nicotine System Kit transdermal film, extended release See Instructions, APPLY DIRECTED, # 1 patch(es), 0 Refill(s), Pharmacy: [facility], APPLY DIRECTED, 166, cm, 04/08/22 23:34:00 EDT, Height/Length Dosing, 150, kg, 04/08/22 23:34:00 EDT, Weight Dosing Start Date: 04/19/22 Status: Ordered Nicotine System Kit transdermal film, extended release See Instructions, APPLY DIRECTED, # 1 kit(s), 0 Refill(s), Pharmacy: [facility] APPLY DIRECTED, 166, cm, 04/08/22 23:34:00 EDT, Height/Length Dosing, 150, kg, 04/08/22 23:34:00 EDT, Weight Dosing Start Date: 05/01/22 Status: Ordered OLANZapine 20 mg oral tablet 20 mg = 1 tab(s), Oral, HS, 0 Refill(s) Start Date: 05/01/22 Status: Ordered oxybutynin 5 mg/24 hours oral tablet, extended release 5 mg = 1 tab(s), Oral, Daily, # 90 tab(s), 0 Refill(s) Start Date: 05/01/22 Status: Ordered semaglutide 3 mg oral tablet 3 mg = 1 tab(s), Oral, Daily, # 30 tab(s), 0 Refill(s), Pharmacy: [id number], 1 tab(s) Oral Daily, 166, cm, 04/08/22 23:34:00 EDT, Height/Length Dosing, 150, kg, 04/08/22 23:34:00 EDT, Weight Dosing Start Date: 04/19/22 Status: Ordered spironolactone 25 mg oral tablet 25 mg = 1 tab(s), Oral, Daily, # 90 tab(s), 1 Refill(s), Pharmacy: [facility] #[id number], 1 tab(s) Oral Daily, 166, cm, 05/13/22 17:41:00 EDT, Height/Length Dosing, 150, kg, 05/13/22 17:41:00 EDT, Weight Dosing Start Date: 10/17/22 Status: Ordered traZODone 50 mg oral tablet = 1 tab(s), Oral, Once a day (at bedtime), # 30 tab(s), 0 Refill(s), Pharmacy: [facility]#[id number], TAKE 1 TABLET BY MOUTH EVERY DAY AT BEDTIME, 166, cm, 05/13/22 17:41:00 EDT, Height/Length Dosing, 150, kg, 05/13/22 17:41:00 EDT, Weight Dosing Start Date: 09/10/22 Status: Ordered Vitamin D 1000 25 mcg, Oral, Daily, 0 Refill(s) Start Date: 05/01/22 Status: Ordered Vitamin D2 1.25 mg (50,000 intl units) oral capsule 50,000 IntUnit = 1 cap(s), Oral, 2x/Wk, # 30 cap(s), 0 Refill(s), Pharmacy: [id number], 1 cap(s) Oral 2x/Wk, 166, cm, 04/08/22 23:34:00 EDT, Height/Length Dosing, 150, kg, 04/08/2223:34:00 EDT, Weight Dosing Start Date: 04/19/22 Status: Ordered Mental Status 11/21/22 Level of Consciousness Obtunded Problem List Condition Confirmation Course Effective Dates Status H ealth Status Informant Adrenal nodule 1 Confirmed Active Bipolar 1 disorder Confirmed Active Morbid obesity with BMI of 50.0-59.9, adult Confirmed Active Body mass index [BMI] 50.0-59.9, adult Confirmed Active Central obesity Confirmed Active Adnexal cyst 2 Confirmed Active Pedal edema Confirmed Active Family history of diabetes mellitus Confirmed Active Fissured skin Confirmed Active Insomnia 3 Confirmed Active Irregular menses Confirmed Active Onychomycosis Confirmed Active Pain due to onychomycosis of nail Confirmed Active Establishing care with new doctor, encounter for Confirmed Active Pre-diabetes Confirmed Active PTSD (post-traumatic stress disorder) Confirmed Active Tobacco user Confirmed Active Vitamin D deficiency [facility] Results Laboratory List Name Date .[facility] Comments 11/22/22 Venous Bld Gas 11/22/22 Fentanyl Level 11/22/22 Urinalysis with Culture, if indicated [facility] 11/22/22 Urine Drug Screen Standard 11/22/22 Acetaminophen Level 11/21/22 SARS-CoV-2 (COVID-19)/Flu/RSV (GeneXpert ) 11/21/22 Salicylate Level 11/21/22 .[facility] Comments 11/21/22 Venous Bld Gas 11/21/22 Ketones (BHB) Serum, Quant (Beta Hydroxy buterate (Quant)) 11/21/22 Automated Differential Standard 11/21/22 Basic Metabolic Panel Standard (BMP Abrahan dard) 11/21/22 CBC w/Diff Standard 11/21/22 Urinalysis Microscopic Standard 11/21/22 Most recent to oldest [Reference Range]: 1 2 VBG Comment PCV Mode *NA* (11/22/22 1:39 AM) LM 15 *NA* (11/21/22 10:48 PM) Set RR 16 *NA* (11/22/22 1:39 AM) PEEP 7 *NA* (11/22/22 1:39 AM) Urine Culture? No (11/22/22 12:50 AM) No (11/22/22 12:50 AM) eGFR CKD-EPI [>=60 mL/min/1.73 m2] 94.53 mL/min/1.73 m2 *NA* (11/21/22 8:38 PM) BE Venous -4.9 *NA* (11/22/22 1:39 AM) -6.1 *NA* (11/21/22 10:48 PM) U Buprenorphine Scr [Negative] Positive *ABN* (11/22/22 12:50 AM) Ketone (BHB), Serum Quant [0 .02-0.27 mmol/L] .50 mmol/L *HI* (11/21/22 8:52 PM) NRBC Auto Pct [0.00-0.20 %] 0.00 % (11/21/22 8:38 PM) Blood Gas Sample Venous *NA* (11/22/22 1:39 AM) Arterial *NA* (11/21/22 10:48 PM) COHb Venous [0.0-1.5 %] 4.2 % *HI* (11/22/22 1:39 AM) 5.5 % *CRIT* (11/21/22 10:48 PM) MetHb Venous [0.0-1.5] 0.4 (11/22/22 1:39 AM) 0.0 (11/21/22 10:48 PM) O2Hb Venous [40.0-70.0] 94.8 *CRIT* (11/22/22 1:39 AM) 93.8 *CRIT* (11/21/22 10:48 PM) SO2 Venous [60.0-85.0] 99.4 *HI* (11/22/22 1:39 AM) 99.3 *HI* (11/21/22 10:48 PM) tHb Venous [7-25] 11 (11/22/22 1:39 AM) 13 (11/21/22 10:48 PM) Creatinine [0.50-0.90 mg/dL] 0.79 mg/dL (11/21/22 8:38 PM) Dt/Time Notified 11/22/2022 02:26 AM *NA* (11/22/22 1:39 AM) 11/21/2022 10:55 PM *NA* (11/21/22 10:48 PM) Notified By Camille *NA* (11/22/22 1:39 AM) Camille *NA* (11/21/22 10:48 PM) Notified Whom Guru Amador *NA* (11/22/22 1:39 AM) Nacho Johnston *NA* (11/21/22 10:48 PM) FiO2 Venous 40.0 % *NA* (11/22/22 1:39 AM) 80.0 % *NA* (11/21/22 10:48 PM) PIP ABG 16 *NA* (11/22/22 1:39 AM) UA Hyal Cast Rare *ABN* (11/22/22 12:50 AM) UA Bacteria [None Seen] Rare *ABN* (11/22/22 12:50 AM) U Benzodia Scr [Negative] Negative (11/22/22 12:50 AM) UA Bili [NEGATIVE] NEGATIVE *NA* (11/22/22 12:50 AM) UA Blood [NEGATIVE] Trace *ABN* (11/22/22 12:50 AM) U Cocaine Scr [Negative] Negative (11/22/22 12:50 AM) UA Color YELLOW *NA* (11/22/22 12:50 AM) UA Glucose [Negative] >=1000 mg/dL *ABN* (11/22/22 12:50 AM) UA Ketones TRACE *NA* (11/22/22 12:50 AM) UA Leuk Est [NEGATIVE] NEGATIVE (11/22/22 12:50 AM) UA Mucous Moderate *ABN* (11/22/22 12:50 AM) UA Nitrite [NEGATIVE] NEGATIVE (11/22/22 12:50 AM) U Opiate Scr [Negative] Negative (11/22/22 12:50 AM) U PCP Scr [Negative] Negative (11/22/22 12:50 AM) UA Protein [NEGATIVE] Trace (11/22/22 12:50 AM) UA RBC [0-2] 5-10 *ABN* (11/22/22 12:50 AM) UA Urobilinogen [<1.0 mg/dL] 0.2 EU/dL (11/22/22 12:50 AM) UA WBC 0-2 (11/22/22 12:50 AM) U Amph Scr [Negative] Negative (11/22/22 12:50 AM) U Shayy Scr [Negative] Negative (11/22/22 12:50 AM) AGAP [10.0-18.0 mmol/L] 16.7 mmol/L (11/21/22 8:38 PM) Glucose Lvl [70-100 mg/dL] 394 mg/dL *HI* (11/21/22 8:38 PM) HCO3 Manuel 24.7 *NA* (11/22/22 1:39 AM) 24.6 *NA* (11/21/22 10:48 PM) Hct [34.1-44.9 %] 40.9 % (11/21/22 8:38 PM) Hgb [11.5-15.7 gm/dL] 12.4 gm/dL (11/21/22 8:38 PM) Lymph Auto [15.0-45.0 %] 8.6 % *LOW* (11/21/22 8:38 PM) MCH [25.6-32.2 pg] 25.3 pg *LOW* (11/21/22 8:38 PM) MCHC [32.3-36.5 gm/dL] 30.3 gm/dL *LOW* (11/21/22 8:38 PM) MCV [79.4-94.8 fL] 83.3 fL (11/21/22 8:38 PM) Stephenson Auto [4.0-14.0 %] 3.3 % *LOW* (11/21/22 8:38 PM) MPV [9.4-12.4 fL] 8.5 fL *LOW* (11/21/22 8:38 PM) Neutro Auto [50.0-75.0 %] 85.1 % *HI* (11/21/22 8:38 PM) Osmolality [268.0-291.0 mOsm/kg] 282.6 m Osm/kg (11/21/22 8:38 PM) pCO2 Manuel [41-51] 73 *CRIT* (11/22/22 1:39 AM) 77 *CRIT* (11/21/22 10:48 PM) pH Manuel [7.26-7.43] 7.15 *CRIT* (11/22/22 1:39 AM) 7.13 *CRIT* (11/21/22 10:48 PM) Platelet [150-400 x10(3)/uL] 369 x10(3)/ uL (11/21/22 8:38 PM) pO2 Manuel [20-40] 184 *CRIT* (11/22/22 1:39 AM) 211 *CRIT* (11/21/22 10:48 PM) RBC [3.93-5.22 x10(6)/uL] 4.91 x10(6)/uL (11/21/22 8:38 PM) Salicylate Lvl [3.0-10.0 mg/dL] <0.3 mg/ dL *LOW* (11/21/22 11:14 PM) Sodium Lvl [136-145 mmol/L] 133 mmol/L *LOW* (11/21/22 8:38 PM) UA pH [4.6-8.0] 5.5 (11/22/22 12:50 AM) Acetaminoph Lvl [10.0-30.0 ug/mL] <5.0 u g/mL *LOW* (11/21/22 11:14 PM) Basophil Auto [0.0-2.0 %] 0.4 % (11/21/22 8:38 PM) CO2 [22-29 mmol/L] 25 mmol/L (11/21/22 8:38 PM) Eos Auto [0.0-8.0 %] 0.7 % (11/21/22 8:38 PM) UA Spec Grav [1.000-1.035] 1.025 (11/22/22 12:50 AM) WBC [4.0-10.0 x10(3)/uL] 28.0 x10(3)/uL 1 *CRIT* (11/21/22 8:38 PM) BUN [6-23 mg/dL] 12 mg/dL (11/21/22 8:38 PM) Calcium Lvl [8.6-10.2 mg/dL] 9.7 mg/dL (11/21/22 8:38 PM) Chloride [98-107 mmol/L] 95 mmol/L *LOW* (11/21/22 8:38 PM) Potassium Lvl [3.5-5.1 mmol/L] 3.7 mmol/ L (11/21/22 8:38 PM) Influenza A (Influenza/RSV) -GeneXpert [Negative] Negative (11/21/22 11:14 PM) Influenza B (Influenza/RSV) [Negative] N egative (11/21/22 11:14 PM) Micro? [Not Indicated] Indicated *ABN* (11/22/22 12:50 AM) Lymph Absolute [1.20-3.70 x10(3)/uL] 2.4 1 x10(3)/uL (11/21/22 8:38 PM) Stephenson Absolute [0.20-0.40 x10(3)/uL] 0.91 x10(3)/uL *HI* (11/21/22 8:38 PM) Eos Absolute [0.04-0.54 x10(3)/uL] 0.20 x10(3)/uL (11/21/22 8:38 PM) NRBC Absolute [0.00-0.01 x10(3)/uL] 0.00 x10(3)/uL (11/21/22 8:38 PM) UA Clarity CLEAR *NA* (11/22/22 12:50 AM) U TCA Scr [Negative] Negative (11/22/22 12:50 AM) Neutro Absolute [1.56-6.13 x10(3)/uL] 23 .83 x10(3)/uL *HI* (11/21/22 8:38 PM) RDW-CV [11.7-14.4 %] 16.5 % *HI* (11/21/22 8:38 PM) U mAMP Scr [Negative] Negative (11/22/22 12:50 AM) U OXY Scr [Negative] Negative (11/22/22 12:50 AM) U PPX Scr [Negative] Negative (11/22/22 12:50 AM) Fentanyl Interp [Negative] Negative (11/22/22 12:50 AM) UA Squam Epi Rare *ABN* (11/22/22 12:50 AM) U THC Scr [Negative] Positive *ABN* (11/22/22 12:50 AM) U Methadone Scr [Negative] Negative (11/22/22 12:50 AM) RSV (Flu/RSV) -GeneXpert [Negative] Nega tive (11/21/22 11:14 PM) SARS-CoV-2 (COVID-19) PCR (G eneXpert) [Negative] Negative (11/21/22 11:14 PM) O2 Device VENT *NA* (11/22/22 1:39 AM) NRB *NA* (11/21/22 10:48 PM) Immature Gran % [0.00-2.30 %] 1.90 % (11/21/22 8:38 PM) Immature Gran Absolute 0.52 x10(3)/uL *NA* (11/21/22 8:38 PM) Basophil Absolute [0.00-0.10 x10(3)/uL] 0.10 x10(3)/uL (11/21/22 8:38 PM) Employed in healthcare? No *NA* (11/21/22 11:14 PM) Symptomatic as defined by CDC? No *NA* (11/21/22 11:14 PM) Hospitalized due to COVID-19? No *NA* (11/21/22 11:14 PM) In ICU? No *NA* (11/21/22 11:14 PM) Group care resident? No *NA* (11/21/22 11:14 PM) status? Not *NA* (11/21/22 11:14 PM) 1Result Comment: Critical result notified/readback to Rose Avila at ER by SVM at 11/21/2022 20:50:46 EST. Radiology Reports * Exam Date Time Procedure Performing Provider Status 11/22/22 3:11 AM XR Chest 1 View Portable Victorino Beverly nd; Auth (Verified) Notes: (XR Chest 1 View Portable) Reason For Exam: central line placement XR Chest 1 View Portable EXAMINATION: XR Chest 1 View Portable CLINICAL HISTORY: central line placement TECHNIQUE: AP chest radiograph, single image COMPARISON: Chest radiograph 11/22/2022 FINDINGS: Endotracheal tube tip projects 3.5 cm above the terri. Right IJ central venous catheter tip projects over the superior cavoatrial junction. Enteric tube courses below the level of the diaphragm and beyond the inferior [id number]. Increased ill-defined opacity obscures the left hemidiaphragm and left heart border. Increased pulmonary vascular congestion. No pneumothorax. Trace right and small left pleural effusions. Left-sided effusion is increased in size. Unchanged size of the cardiomediastinal silhouette. Limited evaluation of the ximena. No acute osseous findings. IMPRESSION: 1. Right IJ central venous catheter tip projects over the superior cavoatrial junction. 2. New left lower lobe opacity with air bronchograms present. Concerning for pneumonia or sequela of aspiration. 3. Increased small left pleural effusion. 4. Trace right pleural effusion. 5. Increased pulmonary vascular congestion. Preliminary report signed by a [facility] Data Keyer or Fellow: Joey Naranjo at 11/22/2022 3:42 AM I have personally reviewed the image(s) and the resident's interpretation and agree with the findings, Alvaro Easley MD at 11/22/2022 3:52 AM Thank you for letting us participate in the care of this patient. If you are a health care provider and have any questions regarding this report, please contact the number below. For patients who have questions please contact the health child care cook that requested your imaging first. Final Dictated: 11/22/2022 3:52 am ALVARO EASLEY Signed (Electronic Signature): 11/22/2022 3:52 am Signed by: ALVARO EASLEY * Exam Date Time Procedure Performing Provider Status 11/22/22 12:55 AM XR Chest 1 View Portable RushAubrie ond; Auth (Verified) Notes: (XR Chest 1 View Portable) Reason For Exam: post intubation XR Chest 1 View Portable EXAMINATION: XR Chest 1 View Portable CLINICAL HISTORY: post intubation TECHNIQUE: AP chest radiograph, single image COMPARISON: Chest radiograph 11/21/2022 FINDINGS: Endotracheal tube tip projects over the mid trachea, 5.1 cm above the terri. Enteric tube projects below the diaphragm, tip not included the [id number]. EKG leads project over the thorax. There are low bilateral lung volumes bronchovascular crowding at the lung bases. No focal consolidation to suggest pneumonia. No pulmonary vascular congestion. No pneumothorax. No pleural effusions. Unchanged size of the cardiomediastinal silhouette and bilateral ximena. Healed fracture deformity of lateral right fifth rib and sixth rib. IMPRESSION: 1. Appropriate position of endotracheal tube. 2. Enteric tube projects below the diaphragm. 3. Low bilateral lung volumes. Thank you for letting us participate in the care of this patient. If you are a health care provider and have any questions regarding this report, please contact the number below. For patients who have questions please contact the health child care cook that requested your imaging first. Final Dictated: 11/22/2022 1:20 am ALVARO EASLEY Signed (Electronic Signature): 11/22/2022 1:20 am Signed by: ALVARO EASLEY * Exam Date Time Procedure Performing Provider Status 11/21/22 11:[address] Head or Brain w/o Contrast Ihsan Beverly; Auth (Verified) Notes: (CT Head or Brain w/o Contrast) Reason For Exam: head injury CT Head or Brain w/o Contrast EXAMINATION: CT Head or Brain w/o Contrast CLINICAL HISTORY: head injury TECHNIQUE: CT head performed without intravenous contrast administration. COMPARISON: 12/03/2021 FINDINGS: Limited by motion. Review of bone windows demonstrates clear appearance visualized mastoid air cells, middle ear cavities. There is material projecting in the sphenoid sinus with possible air-fluid level on the right. Small amount of mucosal thickening at the frontoethmoidal recess bilaterally. No lytic or blastic disease of the calvarium. There is no intracranial hemorrhage, mass, mass effect, midline shift or extra-axial fluid collection. No ventriculomegaly. No cortical infarctions. IMPRESSION: No acute intracranial abnormality. Thank you for letting us participate in the care of this patient. If you are a health care provider and have any questions regarding this report, please contact the number below. For patients who have questions please contact the health child care cook that requested your imaging first. Final Dictated: 11/22/2022 0:12 am HAMZAH MAKI Signed (Electronic Signature): 11/22/2022 0:12 am Signed by: HAMZAH MAKI * Exam Date Time Procedure Performing Provider Status 11/21/22 8:59 PM XR Chest 1 View Portable Jefferson Lovett; Auth (Verified) Notes: (XR Chest 1 View Portable) Reason For Exam: sob XR Chest 1 View Portable EXAMINATION: XR Chest 1 View Portable CLINICAL HISTORY: sob TECHNIQUE: AP portable view the chest COMPARISON: 03/15/2022 FINDINGS: Blurring of the left hemidiaphragm laterally with added radiodensity over the cardiac silhouette on the left primarily laterally. Right lung appears clear. Cardiac and mediastinal contours are unchanged. Pulmonary vasculature within normal limits for position and body habitus. IMPRESSION: Left lower lung zone airless lung, atelectasis, consolidation or effusion. Thank you for letting us participate in the care of this patient. If you are a health care provider and have any questions regarding this report, please contact the number below. For patients who have questions please contact the health child care cook that requested your imaging first. Final Dictated: 11/21/2022 9:26 pm HAMZAH MAKI Signed (Electronic Signature): 11/21/2022 9:26 pm Signed by: HAMZAH MAKI Vital Signs Most recent to oldest [Reference Range]: 1 2 3 Temperature Temporal Artery [36.3-37.8 DegC] 35.8 DegC *LOW* (11/21/22 8:11 PM) Peripheral Pulse Rate [60-100 bpm] 48 bpm *LOW* (11/22/22 2:15 AM) 55 bpm *LOW* (11/22/22 1:28 AM) 78 bpm (11/22/22 12:55 AM) Heart Rate Monitored [60-100 bpm] 48 bpm *LOW* (11/22/22 2:15 AM) 69 bpm (11/22/22 1:42 AM) 55 bpm *LOW* (11/22/22 1:28 AM) Respiratory Rate [14-20 br/min] 20 br/min (11/22/22 12:22 AM) 9 br/min *LOW* (11/22/22 12:08 AM) 13 br/min *LOW* (11/21/22 11:15 PM) Blood Pressure [90-140/60-90 mmHg] 107/59mmHg (11/22/22 2:15 AM) 93/49mmHg (11/22/22 1:28 AM) 117/50mmHg (11/22/22 12:55 AM) Mean Arterial Pressure, Cuff [70-110 mmHg] 75 mmHg (11/22/22 2:15 AM) 64 mmHg *LOW* (11/22/22 1:28 AM) 72 mmHg (11/22/22 12:55 AM) Mean Arterial Pressure Cuff-Monitor 73 mmHg (11/22/22 2:15 AM) 62 mmHg (11/22/22 1:28 AM) 68 mmHg (11/22/22 12:55 AM) FIO2 40 % (11/22/22 1:42 AM) 40 % (11/22/22 1:28 AM) SpO2 [92-100 %] 93 % (11/22/22 2:15 AM) 97 % (11/22/22 1:42 AM) 95 % (11/22/22 1:28 AM) Oxygen Activity Initiate (11/21/22 8:11 PM) Height 166.000 cm (11/21/22 8:11 PM) Height/Length Dosing 166.000 cm (11/21/22 8:43 PM) Weight 157.100 kg (11/21/22 8:11 PM) Weight Dosing 157.100 kg (11/21/22 8:43 PM) Social History Social History Type Response Tobacco Current everyday tob acco user Tobacco Use:. 1 ppd per day. Sex Physician Emergency department Note * Angelia Amador MD: MODIFY, SIGN, PERFORM, SIGN, VERIFY, SIGN, MODIFY Event Display: ED Note - Physician Authored Date: [id number] Patient: KOURTNEY COFFEY Age: 42 years Sex: Female : 1980 Associated Diagnoses: Leukocytosis Author: Angelia Amador MD Basic Information Addendum: Time of addendum:: 11/22/2022 01:26:00 , Assumed care from: KELSIE JOHNSTON MD, Time 11/21/2022 23:00:00. Medical Decision Making I received signout on this pt from Dr. Johnston. Pt is a 42 yo female who was brought in by EMS for apossible overdose. She was initially responsive to narcan but became progressively more obtunded, progressing to acute hypoxic hypercarbic respiratory failure. remainder of any preceding history was severely limited by pt's respiratory and mental status. On my evaluation, pt was obtunded, with sonorous respirations in the rate of 6-12, pinpoint reactive pupils. She received an additional 12mg of narcan with me with no response. At this point, although her mental status was likely poor due to severe hypercarbia and hypoxemia, we added a CT brain to rule out other causes of AMS which was negativ e. Prior to becoming obtunded, she apparently had no focal neurologic deficits, reassuring against any MOLD SHAKER etiology of her AMS. There was likely a component of obesity hypoventilation as well as possible aspiratrion given the atelectasis/infiltrate seen on her R lung. She received antibiotic coverage for possible pneumonia given here severe hypoxemia and her elevated WBC. I considered the diagnosis of DKA given her acidosis and elevated blood glucose but she had a normal anion gap and her acidosis was respiratory in etiology so this was not consistent with DKA. At this point, given that therewas no improvement in her mental status despite a large dose of naloxone and appropriate oxygenation, the decision was made to proceed with intubation for airway protection. Her mental status was toopoor for NIPPV. See intubation procedure note. After intubation, pt's etCO2 dropped from 120s-80s and she became slightly more responsive but still with pinpoint pupils. Due to this, pt was started on propofol gtt and subsequently ketamine was added with good effect. We contacted [facility], [facility], [facility], [facility], and [facility], all of whom did not have capacityto accept the transfer. We discussed with [facility] and pt was accepted for transfer to [facility] ICU under Dr. Davenport. Repeat gas was pending. Results review: Lab results : Lab View 11/22/2022 0:50 EST UA Color YELLOW UA Clarity CLEAR UA Spec Grav 1.025 UA Bili NEGATIVE UA pH 5.5 UA Urobilinogen 0.2 EU/dL UA Blood Trace UA Glucose >=1000 mg/dL UA Ketones TRACE UA Protein Trace UA Nitrite NEGATIVE UA Leuk Est NEGATIVE Urine Culture? No Urine Culture? No Micro? Indicated UA WBC 0-2 UA RBC 5-10 UA Mucous Moderate UA Bacteria Rare UA Hyal Cast Rare UA Squam Epi Rare U Amph Scr Negative U Shayy Scr Negative U Benzodia Scr Negative U Buprenorphine Scr Positive U Cocaine Scr Negative U mAMP Scr Negative U Methadone Scr Negative U Opiate Scr Negative U OXY Scr Negative U PCP Scr Negative U PPX Scr Negative U TCA Scr Negative U THC Scr Positive Fentanyl Interp Negative 11/21/2022 23:14 EST SARS-CoV-2 (COVID-19) PCR (GeneXpert) Negative Employed in healthcare? No Symptomatic as defined by CDC? No Hospitalized due to COVID-19? No In ICU? No Group care resident? No status? Not Acetaminoph Lvl <5.0 ug/mL LOW Salicylate Lvl <0.3 mg/dL LOW RSV (Flu/RSV) -GeneXpert Negative Influenza A (Influenza/RSV) -GeneXpert Negative Influenza B (Influenza/RSV) Negative 11/21/2022 22:48 EST tHb Venous 13 SO2 Venous 99.3 HI pH Manuel 7.13 CRIT pO2 Manuel 211 CRIT pCO2 Manuel 77 CRIT FiO2 Venous 80.0 % NA HCO3 Manuel 24.6 NA COHb Venous 5.5 % CRIT MetHb Venous 0.0 O2Hb Venous 93.8 CRIT BE Venous -6.1 NA Blood Gas Sample Arterial Dt/Time Notified 11/21/2022 10:55 PM Notified By Acmille Notified Whom Nacho Johnston O2 Device NRB LM 15 NA 11/21/2022 20:52 EST Ketone (BHB), Serum Quant 0.50 mmol/L HI 11/21/2022 20:38 EST WBC 28.0 x10(3)/uL CRIT RBC 4.91 x10(6)/uL Hgb 12.4 gm/dL Hct 40.9 % MCV 83.3 fL MCH 25.3 pg LOW MCHC 30.3 gm/dL LOW RDW-CV 16.5 % HI Platelet 369 x10(3)/uL MPV 8.5 fL LOW Neutro Auto 85.1 % HI Lymph Auto 8.6 % LOW Stephenson Auto 3.3 % LOW Eos Auto 0.7 % Basophil Auto 0.4 % NRBC Auto Pct 0.00 % Neutro Absolute 23.83 x10(3)/uL HI Lymph Absolute 2.41 x10(3)/uL Stephenson Absolute 0.91 x10(3)/uL HI Eos Absolute 0.20 x10(3)/uL NRBC Absolute 0.00 x10(3)/uL Basophil Absolute 0.10 x10(3)/uL Immature Gran % 1.90 % Immature Gran Absolute 0.52 x10(3)/uL NA Sodium Lvl 133 mmol/L LOW Potassium Lvl 3.7 mmol/L Chloride 95 mmol/L LOW CO2 25 mmol/L AGAP 16.7 mmol/L BUN 12 mg/dL Creatinine 0.79 mg/dL Glucose Lvl 394 mg/dL HI Calcium Lvl 9.7 mg/dL Osmolality 282.6 mOsm/kg eGFR CKD-EPI 94.53 mL/min/1.73 m2 . Chest X-Ray: Interpretation by Emergency Physician, post intubation cxr with ett in good position. Radiology results: X-ray (ST) X-Ray: ?? XR Chest 1 View Portable ?? 11/22/22 01:20:55 EXAMINATION: XR Chest 1 View Portable CLINICAL HISTORY: post intubation TECHNIQUE: AP chest radiograph, single image COMPARISON: Chest radiograph 11/21/2022 FINDINGS: Endotracheal tube tip projects over the mid trachea, 5.1 cm above the terri. Enteric tube projects below the diaphragm, tip not included the [id number]. EKG leads project over the thorax. There are low bilateral lung volumes bronchovascular crowding at the lung bases. No focal consolidation to suggest pneumonia. No pulmonary vascular congestion. No pneumothorax. No pleural effusions. Unchanged size of the cardiomediastinal silhouette and bilateral ximena. Healed fracture deformity of lateral right fifth rib and sixth rib. IMPRESSION: 1. Appropriate position of endotracheal tube. 2. Enteric tube projects below the diaphragm. 3. Low bilateral lung volumes. Thank you for letting us participate in the care of this patient. If you are a health care provider and have any questions regarding this report, please contact the number below. For patients who have questions please contact the health child care cook that requested your imaging first. ?? Signed By: ALVARO EASLEY ?? XR Chest 1 View Portable ?? 11/21/22 21:26:43 EXAMINATION: XR Chest 1 View Portable CLINICAL HISTORY: sob TECHNIQUE: AP portable view the chest COMPARISON: 03/15/2022 FINDINGS: Blurring of the left hemidiaphragm laterally with added radiodensity over the cardiac silhouette on the left primarily laterally. Right lung appears clear. Cardiac and mediastinal contours are unchanged. Pulmonary vasculature within normal limits for position and body habitus. IMPRESSION: Left lower lung zone airless lung, atelectasis, consolidation or effusion. Thank you for letting us participate in the care of this patient. If you are a health care provider and have any questions regarding this report, please contact the number below. For patients who have questions please contact the health child care cook that requested your imaging first. ?? Signed By: HAMZAH MAKI , CT (ST) Computed Tomography: ?? CT Head or Brain w/o Contrast ?? 11/22/22 00:12:21 EXAMINATION: CT Head or Brain w/o Contrast CLINICAL HISTORY: head injury TECHNIQUE: CT head performed without intravenous contrast administration. COMPARISON: 12/03/2021 FINDINGS: Limited by motion. Review of bone windows demonstrates clear appearance visualized mastoid air cells, middle ear cavities. There is material projecting in the sphenoid sinus with possible air-fluid level on the right. Small amount of mucosal thickening at the frontoethmoidal recess bilaterally. No lytic or blastic disease of the calvarium. There is no intracranial hemorrhage, mass, mass effect, midline shift or extra-axial fluid collection. No ventriculomegaly. No cortical infarctions. IMPRESSION: No acute intracranial abnormality. Thank you for letting us participate in the care of this patient. If you are a health care provider and have any questions regarding this report, please contact the number below. For patients who have questions please contact the health child care cook that requested your imaging first. ?? Signed By: HAMZAH MAKI , emergency physician interpretation: ct brain - reviewed by myself and interpreted with no acute intracranial process. Reexamination/ Reevaluation Vital signs Basic Oxygen Information 11/21/2022 21:15 EST Oxygen Therapy Nonrebreather mask Oxygen Flow Rate 15 L/min 11/21/2022 21:00 EST Oxygen Therapy Nonrebreather mask Oxygen Flow Rate 15 L/min 11/21/2022 20:45 EST Oxygen Therapy Nonrebreather mask Oxygen Flow Rate 15 L/min 11/21/2022 20:30 EST Oxygen Therapy Nasal cannula Oxygen Flow Rate 6 L/min 11/21/2022 20:15 EST Oxygen Therapy Nasal cannula Oxygen Flow Rate 6 L/min 11/21/2022 20:11 EST Oxygen Therapy Room air 2:59am: as pt was ready for transport, her SBP and MAPs decreased, necessitating initiation of vasopressors. We notified the accepting hospital and they requested a central line prior to transport. This was placed. see procedure note for details. Pt was noted to have extremely low lung volumes, even at an IBW of 63kg with lung protective ventilation. her peak pressures were high. we increased thepeep to help with recruitment and peak pressures did not increase. she has been intermittently hypoxemic even on high ventilator settings, concern that she is developing ARDS. Procedure Endotracheal intubation Time: 11/22/2022 00:30:00 . Confirmed: Patient, procedure, and site correct, Time-out taken prior to procedure. Consent: Emergent. Indication: Respiratory failure, Airway protection. Airway assessment: Mallampati class: IV-hard palate only, Pre-procedure O2 saturation 94 %, on 15L NRB, pt with significant obesity, making her a high risk intubation. Pt was satting 94% on NRB priorto intubation. We prepared a video stylet as well as bougie assisted intubation and DL as backups. She was placed in reverse trendelenberg to aid in intubation. Procedural sedation: None. Monitoring: Cardiac, blood pressure, continuous pulse oximetry, See nurse's notes. Preparation: Pre oxygenated, Ensured proper cuff inflation. Technique: Oral intubation: A 7.5 ET tube was inserted, using a curved blade, Secured: measures 23 cm at the lips, Video scope. Confirmation of tube placement: Bilateral chest rise, Positive color change indicated on end title CO2, Chest x-ray. Post procedure exam: Equal breath sounds, 02 sat 99 %, No epigastric breath sounds, Clinically improved. Post procedure management: Propofol , Ventilator settings as documented. Complications: None. Performed by: Self. Line Placement Time: 11/22/2022 03:01:00 . Confirmed: Patient, procedure, side, and site correct, Time-out taken prior to procedure. Consent: Emergent. Indication: Hemodynamically unstable. Procedural sedation: None. Monitoring: Cardiac, blood pressure, continuous pulse oximetry. Location: Right, Internal jugular vein. Preparation: Sterile field established, landmarks identified, Skin prepped with chlorhexidine, Local anesthesia: none. central venous line: 7.5 [place] triple lumen, Seldinger technique utilized for line placement, 1 attempts, Secured at 15 cm , following procedure. Post-procedure: Adequate blood return observed, Adequate fluid flow observed, Bilateral breath sounds, Circulation, motor, sensory exam intact. Patient tolerated: Well. Complications: None. Performed by: Self. Critical care note Total time: 120 minutes spent engaged in work directly related to patient care and/ or available for direct patient care, exclusive of procedure time, which included endotracheal intubation. Critical condition(s) addressed for impending deterioration include: airway, metabolic. Associated risk factors: hypoxia, acidosis, drug or med overdose. Management: bedside assessment, Interpretation (chest x-ray, blood gases, blood pressure), Interventions ventilator management, Case review healthcare or medical, Alternate history emergency medical services. Treatment response: improved and stabilized on ventilator and sedated. Performed by: self. Impression and Plan Diagnosis Leukocytosis ([id number] D72.829, Discharge, Medical) Plan Condition: Critical. [Electronically Signed on: 11/22/2022 01:35 EST] Angelia Aamdor MD, MD [Electronically Signed on: 11/22/2022 03:02 EST] Angelia Amador MD, MD [Verified on: 11/22/2022 01:35 EST] Angelia Amador MD, MD * Angelia Amador MD: PERFORM Event Display: ED Note - Physician Authored Date: post central line chest xray reviewed and interpreted by me, line in appropriate position. no ptx [Electronically Signed on: 11/22/2022 03:09 EST] Angelia Amador MD, MD * KELSIE JOHNSTON MD: PERFORM, SIGN, VERIFY Event Display: ED Note - Physician Authored Date: Patient: KOURTNEY COFFEY Age: 42 years Sex: Female : 1980 Associated Diagnoses: None Author: KELSIE JOHNSTON MD Basic Information Patient is a 42yoF w PMH significant for tobacco use, morbid obesity, leg edema, bipolar presents today with drug overdose. Hx gathered from EMS as patient is poor historian. EMS states that she was brought outside by bystanders and had concerns for opiod intoxication. No paraphernalia were around her. EMS brought in. When I asked the patient if she took drugs she noded her head yes. Otherwise she is a poor historian. Review of Systems Cannot perform due to AMS Physical Examination Vital Signs Vital Signs 11/22/2022 0:22 EST Peripheral Pulse Rate 82 bpm Heart Rate Monitored 83 bpm Respiratory Rate 20 br/min Systolic Blood Pressure 156 mmHg HI Diastolic Blood Pressure 76 mmHg Mean Arterial Pressure, Cuff 103 mmHg Mean Arterial Pressure Cuff-Monitor 96 mmHg SpO2 80 % LOW 11/22/2022 0:08 EST Peripheral Pulse Rate 84 bpm Heart Rate Monitored 85 bpm Respiratory Rate 9 br/min LOW Systolic Blood Pressure 164 mmHg HI Diastolic Blood Pressure 84 mmHg Mean Arterial Pressure, Cuff 111 mmHg HI Mean Arterial Pressure Cuff-Monitor 106 mmHg SpO2 95 % 11/21/2022 23:15 EST Peripheral Pulse Rate 95 bpm Heart Rate Monitored 95 bpm Respiratory Rate 13 br/min LOW Systolic Blood Pressure 131 mmHg Diastolic Blood Pressure 66 mmHg Mean Arterial Pressure, Cuff 88 mmHg Mean Arterial Pressure Cuff-Monitor 86 mmHg SpO2 81 % LOW 11/21/2022 23:00 EST Peripheral Pulse Rate 95 bpm Heart Rate Monitored 95 bpm Respiratory Rate 10 br/min LOW Systolic Blood Pressure 131 mmHg Diastolic Blood Pressure 66 mmHg Mean Arterial Pressure, Cuff 88 mmHg Mean Arterial Pressure Cuff-Monitor 86 mmHg SpO2 96 % 11/21/2022 22:45 EST Peripheral Pulse Rate 96 bpm Heart Rate Monitored 96 bpm Respiratory Rate 10 br/min LOW SpO2 95 % 11/21/2022 22:30 EST Peripheral Pulse Rate 97 bpm Heart Rate Monitored 97 bpm Respiratory Rate 16 br/min SpO2 97 % 11/21/2022 22:25 EST Peripheral Pulse Rate 96 bpm Heart Rate Monitored 96 bpm Respiratory Rate 10 br/min LOW Systolic Blood Pressure 176 mmHg HI Diastolic Blood Pressure 83 mmHg Mean Arterial Pressure, Cuff 114 mmHg HI Mean Arterial Pressure Cuff-Monitor 103 mmHg SpO2 97 % 11/21/2022 21:53 EST Peripheral Pulse Rate 92 bpm Heart Rate Monitored 94 bpm Respiratory Rate 21 br/min HI Systolic Blood Pressure 181 mmHg HI Diastolic Blood Pressure 78 mmHg Mean Arterial Pressure, Cuff 112 mmHg HI SpO2 98 % 11/21/2022 21:15 EST Peripheral Pulse Rate 103 bpm HI Heart Rate Monitored 103 bpm HI Respiratory Rate 17 br/min Systolic Blood Pressure 182 mmHg HI Diastolic Blood Pressure 99 mmHg HI Mean Arterial Pressure, Cuff 127 mmHg >HHI Mean Arterial Pressure Cuff-Monitor 121 mmHg SpO2 99 % 11/21/2022 21:00 EST Peripheral Pulse Rate 106 bpm HI Heart Rate Monitored 109 bpm HI Respiratory Rate 23 br/min HI Systolic Blood Pressure 165 mmHg HI Diastolic Blood Pressure 77 mmHg Mean Arterial Pressure, Cuff 106 mmHg Mean Arterial Pressure Cuff-Monitor 98 mmHg SpO2 100 % 11/21/2022 20:45 EST Peripheral Pulse Rate 96 bpm Heart Rate Monitored 96 bpm Respiratory Rate 11 br/min LOW Systolic Blood Pressure 164 mmHg HI Diastolic Blood Pressure 87 mmHg Mean Arterial Pressure, Cuff 113 mmHg HI Mean Arterial Pressure Cuff-Monitor 108 mmHg SpO2 84 % LOW 11/21/2022 20:30 EST Peripheral Pulse Rate 91 bpm Heart Rate Monitored 89 bpm Respiratory Rate 12 br/min LOW Systolic Blood Pressure 148 mmHg HI Diastolic Blood Pressure 138 mmHg HI Mean Arterial Pressure, Cuff 141 mmHg >HHI Mean Arterial Pressure Cuff-Monitor 143 mmHg 11/21/2022 20:15 EST Systolic Blood Pressure 193 mmHg HI Diastolic Blood Pressure 173 mmHg HI Mean Arterial Pressure, Cuff 180 mmHg >HHI Mean Arterial Pressure Cuff-Monitor 182 mmHg 11/21/2022 20:11 EST Temperature Temporal Artery 35.8 DegC LOW Peripheral Pulse Rate 98 bpm Respiratory Rate 12 br/min LOW Systolic Blood Pressure 143 mmHg HI Diastolic Blood Pressure 80 mmHg SpO2 70 % LOW Oxygen Activity Initiate . General: patient wakes to mild pain stimulation, wakens quickly and stating that she needs the bathroom or has wet socks, quickly falls back asleep without stimulation. Skin: Warm, dry. Head: Atraumatic. Neck: Supple. Eye: Normal conjunctiva, pinpoint pupils bilaterally. Cardiovascular: Regular rate and rhythm. Respiratory: Lungs are clear to auscultation, breath sounds are equal, decreased respiratory rate, lungs clear b/l, sonorous respirations. Gastrointestinal: Soft, Nontender, Non distended. Neurological: patient with sonorous breathing, wakens to mild painful stimuli, moving all limbs to command, quickly falls asleep without stimuli. Psychiatric Medical Decision Making Patient presents with concerns for opioid use. States yes to my question about using drugs but unable to get more information out of her. EMS gave 6mg of [place] narcan with improvement in patients breathing, they did have to bag for a few breaths due to hypoxemia. When patient arrived we gave 2mg of narcan with improvement. While in the ED patients ET has risen and her mental status has worsened. Patient received 6mg in the field with improvement, initially responded to another 2mg, however with worsening mental status we gave higher doses of narcan, without significant improvement. Still w bilateral pinpoint pupils and RR <10. O2 is wnl but ET is elevated. Labs show elevated white blood cell count, negative COVID, elevated glucose, mildly elevated ketones, however without any anion gap. EG shows pH of 7.13 with a PCO2 of 77. Started on fluids and antibiotics after her white blood cell count showed elevation. Afebrile on presentation. CXR w possible pna. W worsening mental status we obtained CT head without ICH. Patient with hypercapnic respiratory failure, intubated by Dr. Amador and SO to Dr. Amador pending placement. [Electronically Signed on: 11/22/2022 00:44 EST] KELSIE JOHNSTON MD, MD, MPH [Verified on: 11/22/2022 00:44 EST] KELSIE JOHNSTON MD, MD, MPH Nurse Progress note * Jeremiah Lopez RN: PERFORM Event Display: Progress Note-Nurse Authored Date: [id number] Patient intubated with 7.5 ETtube at 23cm at Lip, OG 16 FR. 65 cm. [Electronically Signed on: 11/22/2022 00:29 EST] Jeremiah Lopez RN [Verified on: 11/22/2022 00:29 EST] Jeremiah Lopez RN * Ada Manuel: PERFORM Event Display: Progress Note-Nurse Authored Date: [id number] After arrival to ED, patient very sedated despite narcan. Hypoxic on NC O2, applied NRB and administered Narcan per order. Patient remains sedated, but wakes long enough to yell at staff. Pt requested to go to the bathroom, but is not safe to walk. Placed pt on bedpan. Patient not awake enough to realize she is on bedpan. [Electronically Signed on: 11/21/2022 21:03 EST] Ada Manuel [Verified on: 11/21/2022 21:03 EST] Ada Manuel Respiratory therapy Hospital Note * Kaitlin Bruce: PERFORM Event Display: Respiratory Therapy Note Authored Date: [id number] Pt brought to ER by EMS for poss. OD. Pt had already received Narcan w/ no response. Pt was obtunded w/ sonorous respirations and VBGs were 7.13 / 77 / 25. Pt given more narcan with no effect. Decision was made to intubate to protect airway. Pt was intubated 03/16.5 ETT 23@ lips. Cmac D blade was used. Placement confirmed by BBS/ETCO2 & CXR. Copious amounts of cream colored thick secretions suctioned via in-line sx cath. copious oral secretions suctioned from mouth. Bite Block was inserted due to pt biting tube when coming awake. Pt is now needing sedation to maintain airway. Pt Placed on Miller T1 initially VC was attempted however pt was maxing peak pressure, so mode switched to PCV. Insp. pressure setting @ 16 to obtain a VT of 8ml/per Kg. RR 16 40% and 7 peep. O2 sats 97%, ETCO2 steadily falling, starting off at 115, and now in the 70;s. Lungs have course crackles t/o Will do f/u VBG and continue to follow. Pt scheduled for transfer. Portable XR Chest AP single view * ALVARO EASLEY: VERIFY, VERIFY, PERFORM Event Display: Report Authored Date: [id number] EXAMINATION: XR Chest 1 View Portable CLINICAL HISTORY: central line placement TECHNIQUE: AP chest radiograph, single image COMPARISON: Chest radiograph 11/22/2022 FINDINGS: Endotracheal tube tip projects 3.5 cm above the terri. Right IJ central venous catheter tip projects over the superior cavoatrial junction. Enteric tube courses below the level of the diaphragm and beyond the inferior [id number]. Increased ill-defined opacity obscures the left hemidiaphragm and left heart border. Increased pulmonary vascular congestion. No pneumothorax. Trace right and small left pleural effusions. Left-sided effusion is increased in size. Unchanged size of the cardiomediastinal silhouette. Limited evaluation of the ximena. No acute osseous findings. IMPRESSION: 1. Right IJ central venous catheter tip projects over the superior cavoatrial junction. 2. New left lower lobe opacity with air bronchograms present. Concerning for pneumonia or sequela of aspiration. 3. Increased small left pleural effusion. 4. Trace right pleural effusion. 5. Increased pulmonary vascular congestion. Preliminary report signed by a [facility] Data Keyer or Fellow: Joey Naranjo at 11/22/2022 3:42 AM I have personally reviewed the image(s) and the resident's interpretation and agree with the findings, Alvaro Easley MD at 11/22/2022 3:52 AM Thank you for letting us participate in the care of this patient. If you are a health care provider and have any questions regarding this report, please contact the number below. For patients who have questions please contact the health child care cook that requested your imaging first. Final Dictated: 11/22/2022 3:52 am ALVARO EASLEY Signed (Electronic Signature): 11/22/2022 3:52 am Signed by: ALVARO EASLEY * ALVARO EASLEY: VERIFY, VERIFY, PERFORM Event Display: Report Authored Date: EXAMINATION: XR Chest 1 View Portable CLINICAL HISTORY: post intubation TECHNIQUE: AP chest radiograph, single image COMPARISON: Chest radiograph 11/21/2022 FINDINGS: Endotracheal tube tip projects over the mid trachea, 5.1 cm above the terri. Enteric tube projects below the diaphragm, tip not included the [id number]-jeth. EKG leads project over the thorax. There are low bilateral lung volumes bronchovascular crowding at the lung bases. No focal consolidation to suggest pneumonia. No pulmonary vascular congestion. No pneumothorax. No pleural effusions. Unchanged size of the cardiomediastinal silhouette and bilateral ximena. Healed fracture deformity of lateral right fifth rib and sixth rib. IMPRESSION: 1. Appropriate position of endotracheal tube. 2. Enteric tube projects below the diaphragm. 3. Low bilateral lung volumes. Thank you for letting us participate in the care of this patient. If you are a health care provider and have any questions regarding this report, please contact the number below. For patients who have questions please contact the health child care cook that requested your imaging first. Final Dictated: 11/22/2022 1:20 am ALVARO EASLEY Signed (Electronic Signature): 11/22/2022 1:20 am Signed by: ALVARO EASLEY * HAMZAH MAKI: VERIFY, VERIFY, PERFORM Event Display: Report Authored Date: [id number] EXAMINATION: XR Chest 1 View Portable CLINICAL HISTORY: sob TECHNIQUE: AP portable view the chest COMPARISON: 03/15/2022 FINDINGS: Blurring of the left hemidiaphragm laterally with added radiodensity over the cardiac silhouette on the left primarily laterally. Right lung appears clear. Cardiac and mediastinal contours are unchanged. Pulmonary vasculature within normal limits for position and body habitus. IMPRESSION: Left lower lung zone airless lung, atelectasis, consolidation or effusion. Thank you for letting us participate in the care of this patient. If you are a health care provider and have any questions regarding this report, please contact the number below. For patients who have questions please contact the health child care cook that requested your imaging first. Final Dictated: 11/21/2022 9:26 pm HAMZAH MAKI Signed (Electronic Signature): 11/21/2022 9:26 pm Signed by: HAMZAH MAKI CT Head WO contrast * HAMZAH MAKI: VERIFY, VERIFY, PERFORM Event Display: Report Authored Date: [id number] EXAMINATION: CT Head or Brain w/o Contrast CLINICAL HISTORY: head injury TECHNIQUE: CT head performed without intravenous contrast administration. COMPARISON: 12/03/2021 FINDINGS: Limited by motion. Review of bone windows demonstrates clear appearance visualized mastoid air cells, middle ear cavities. There is material projecting in the sphenoid sinus with possible air-fluid level on the right. Small amount of mucosal thickening at the frontoethmoidal recess bilaterally. No lytic or blastic disease of the calvarium. There is no intracranial hemorrhage, mass, mass effect, midline shift or extra-axial fluid collection. No ventriculomegaly. No cortical infarctions. IMPRESSION: No acute intracranial abnormality. Thank you for letting us participate in the care of this patient. If you are a health care provider and have any questions regarding this report, please contact the number below. For patients who have questions please contact the health child care cook that requested your imaging first. Final Dictated: 11/22/2022 0:12 am HAMZAH MAKI Signed (Electronic Signature): 11/22/2022 0:12 am Signed by: HAMZAH MAKI Patient Care team information Personnel Name: XIAO IRENE Address: Address: [address] [place] [address]
--- OUTSIDE RECORDS SUMMARY | 2023-02-01 12:12 | XMS_ITS | Continuity of Care Document ---
Author Name Unknown Organization [facility] Address [address] [place] [id number]- Care Team Providers Care Road Maker Name Role Phone Amado Christie Primary Care Physician Kylah monteroailjose Encounter BVT Date(s): 12/03/21 - 12/04/[address] [address]- [place] [phone] Encounter Diagnosis Manic state(Discharge Diagnosis) - 12/03/21 Altered mental state(Discharge Diagnosis) - 12/03/21 COVID-19 virus infection(Discharge Diagnosis) - 12/03/21 Discharge Disposition: Home or Self Care Attending Physician: ALEX ABDUL Admitting Physician: ALEX ABDUL Allergies, Adverse Reactions, Alerts Substance Reaction Severity Status Pollen Mild Active varenicline Unknown Active Haldol Unknown Active Assessment and Plan Extracted from: Title:Addendum *ED Author:Jr Gandhi MD Date :12/03/21 Medical Decision Making Results review: Lab results : Lab View 12/03/2021 23:30 EST Human Chorionic Gonadotropin Qualitative Negative 12/03/2021 14:40 EST SARS-CoV-2 (COVID-19) PCR (GeneXpert) Positive Employed in healthcare? No Symptomatic as defined by CDC? No Hospitalized due to COVID-19? No In ICU? No Group care resident? No status? Not WBC 11.0 x10(3)/uL HI RBC 4.60 x10(6)/uL Hgb 12.0 gm/dL Hct 37.5 % MCV 81.5 fL MCH 26.1 pg MCHC 32.0 gm/dL LOW RDW-CV 14.6 % HI Platelet 397 x10(3)/uL MPV 9.1 fL LOW Neutro Auto 59.5 % Lymph Auto 26.8 % Gilchrist Auto 10.0 % Eos Auto 2.4 % Basophil Auto 0.8 % Immature Gran % 0.50 % NRBC Auto Pct 0.00 % Neutro Absolute 6.58 x10(3)/uL HI Lymph Absolute 2.96 x10(3)/uL Gilchrist Absolute 1.10 x10(3)/uL HI Eos Absolute 0.26 x10(3)/uL Basophil Absolute 0.09 x10(3)/uL Immature Gran Absolute 0.05 x10(3)/uL NA NRBC Absolute 0.00 x10(3)/uL Sodium Lvl 138 mmol/L Potassium Lvl 4.0 mmol/L Chloride 100 mmol/L CO2 26 mmol/L AGAP 16.0 mmol/L BUN 20 mg/dL Creatinine 0.78 mg/dL GFR NonAfrican Ethiopian 81 mL/min/1.73 m2 Glucose Lvl 91 mg/dL Calcium Lvl 10.8 mg/dL HI Total Protein 7.6 gm/dL Albumin Lvl 4.50 gm/dL Alk Phos 113 IntUnit/L HI ALT 22 IntUnit/L AST 24 IntUnit/L Bili Total 0.4 mg/dL Osmolality 277.9 mOsm/kg TSH 3.760 uIU/mL Acetaminoph Lvl <5.0 ug/mL LOW Salicylate Lvl <0.3 mg/dL LOW Ethanol Lvl <10.0 mg/dL ETOH% <0.01 % NA RSV (Flu/RSV) -GeneXpert Negative Influenza A (Influenza/RSV) -GeneXpert Negative Influenza B (Influenza/RSV) Negative . Reexamination/ Reevaluation 0304 Patient mental status cleared, and she was evaluated by [facility]CRS who felt she was safe for discharge. We reviewed her positive COVID test results and home isolation instructions. She is currently living at the [facility] in [place] and affirms that she will remain isolated from staff and other residents, though she does not want to inform them of her COVID infection. We conferred with the overnight pump house engineer regarding disposition recommendations, and after speaking with a videotape sales representative from the [facility], he stated that if we notified the [facility] of her positive COVID test without her permission, this could constitute a HIPAA violation. As such, since she has stated she will isolate as instructed, she can be discharged back to the [facility]. She ambulated out of the ED without further issue. Impression and Plan Diagnosis Altered mental state ([id number] R41.82, Discharge, Medical) COVID-19 virus infection ([id number] U07.1, Discharge, Medical) Manic state ([id number] F30.9, Discharge, Medical) Plan Condition: Improved. Disposition: Discharged: Time 12/04/2021 03:08:00, to home. Patient was given the following educational materials: ED COVID-19 Discharge Instructions (AKAPADIA) (AKAPADIA), General Discharge (SMURRAY), General Discharge (SMURRAY), ED COVID-19 Discharge Instructions (AKAPADIA) (AKAPADIA). Follow up with: ; PCP Referral Within 1 to 2 days Call for followup appointment; HCRS Within 1 to 2 days Call for followup appointment as needed. Counseled: Patient, Regarding diagnosis, Regarding diagnostic results, Regarding treatment plan. Orders: Launch Orders Patient Care: Discharge Patient (Order): 12/04/2021 3:11 EST. Extracted from: Title:Addendum *ED Author:ITZ DE JESUS Date: Medical Decision Making Notes: 2100 Patient received in signout from the previous provider. Patient is here today for psychiatric complaint. Pt was given olanzapine PO, benadryl, and ativan. Pt was hypoxic but felt to be from medications. Pt is allergic to haldol. Pt here with eleonora/psychosis. Pt pending HCRS eval likely in am. Patient will continue to be monitored. Documentation be updated as clinically warranted. . Reexamination/ Reevaluation Vital signs Basic Oxygen Information12/03/2021 16:06 EST Oxygen Therapy Nasal cannula Oxygen Flow Rate 2 L/min 12/03/2021 14:28 EST Oxygen Therapy Room air Diagnostic Tests Pending * Culture Urine 12/03/21 Future Scheduled Tests Radiology* XR Wrist 3 Views Min Rt 11/08/21 Functional Status 12/03/21 Recent Travel History No recent travel Family Member Travel History No recent t ravel COVID-19 Screening None Medications hydrOXYzine 0 Refill(s) Start Date: 08/23/21 Status: Ordered OLANZapine 0 Refill(s) Start Date: 08/23/21 Status: Ordered spironolactone Oral, 0 Refill(s) Start Date: 08/23/21 Status: Ordered Problem List Condition Effective Dates Status Health Status Inform ant Disease caused by 2019 novel coronavirus(Confirmed) 1 12/03/21 Active 1Problem added by Rule (IC_COVID19_AUTO_PROBLEM) following SARS-CoV-2 (COVID- 19)/Flu/RSV (GeneXpert)from Nasal Swab collected on 03-DEC-2021 14:35:00 EST tested positive for COVID-19. Results Laboratory List Name Date Test Urine Standard 12/03/21 Acetaminophen Level 12/03/21 Automated Differential Standard 12/03/21 CBC w/Diff Standard 12/03/21 Comprehensive Metabolic Panel Standard ( CMP Standard) 12/03/21 Ethanol Level2 12/03/21 SARS-CoV-2 (COVID-19)/Flu/RS V (GeneXpert) (SARS-CoV-2 (COVID-19) Flu/RSV PCR (GeneXpert)) 12/03/21 Salicylate Level 12/03/21 TSH 12/03/21 Most recent to oldest [Reference Range]: 1 ETOH% <0.01 % *NA* (12/03/21 2:40 PM) NRBC Auto Pct [0.00-0.20 %] 0.00 % (12/03/21 2:40 PM) Creatinine [0.50-0.90 mg/dL] 0.78 mg/dL (12/03/21 2:40 PM) AGAP [10.0-18.0 mmol/L] 16.0 mmol/L (12/03/21 2:40 PM) Ethanol Lvl [0.0-10.0 mg/dL] <10.0 mg/dL (12/03/21 2:40 PM) Glucose Lvl [70-100 mg/dL] 91 mg/dL (12/03/21 2:40 PM) Hct [34.1-44.9 %] 37.5 % (12/03/21 2:40 PM) Hgb [11.5-15.7 gm/dL] 12.0 gm/dL (12/03/21 2:40 PM) Lymph Auto [15.0-45.0 %] 26.8 % (12/03/21 2:40 PM) MCH [25.6-32.2 pg] 26.1 pg (12/03/21 2:40 PM) MCHC [32.3-36.5 gm/dL] 32.0 gm/dL *LOW* (12/03/21 2:40 PM) MCV [79.4-94.8 fL] 81.5 fL (12/03/21 2:40 PM) Gilchrist Auto [4.0-14.0 %] 10.0 % (12/03/21 2:40 PM) MPV [9.4-12.4 fL] 9.1 fL *LOW* (12/03/21 2:40 PM) Neutro Auto [50.0-75.0 %] 59.5 % (12/03/21 2:40 PM) Osmolality [268.0-291.0 mOsm/kg] 277.9 m Osm/kg (12/03/21 2:40 PM) Platelet [150-400 x10(3)/uL] 397 x10(3)/ uL (12/03/21 2:40 PM) RBC [3.93-5.22 x10(6)/uL] 4.60 x10(6)/uL (12/03/21 2:40 PM) Salicylate Lvl [3.0-10.0 mg/dL] <0.3 mg/ dL *LOW* (12/03/21 2:40 PM) Sodium Lvl [136-145 mmol/L] 138 mmol/L (12/03/21 2:40 PM) Total Protein [6.6-8.7 gm/dL] 7.6 gm/dL (12/03/21 2:40 PM) TSH [0.270-4.200 uIU/mL] 3.760 uIU/mL (12/03/21 2:40 PM) Acetaminoph Lvl [10.0-30.0 ug/mL] <5.0 u g/mL *LOW* (12/03/21 2:40 PM) Albumin Lvl [3.50-5.20 gm/dL] 4.50 gm/dL (12/03/21 2:40 PM) Alk Phos [35-105 IntUnit/L] 113 IntUnit/ L *HI* (12/03/21 2:40 PM) ALT [0-33 IntUnit/L] 22 IntUnit/L (12/03/21 2:40 PM) AST [0-32 IntUnit/L] 24 IntUnit/L (12/03/21 2:40 PM) Basophil Auto [0.0-2.0 %] 0.8 % (12/03/21 2:40 PM) Bili Total [0.0-1.3 mg/dL] 0.4 mg/dL (12/03/21 2:40 PM) CO2 [22-29 mmol/L] 26 mmol/L (12/03/21 2:40 PM) Eos Auto [0.0-8.0 %] 2.4 % (12/03/21 2:40 PM) WBC [4.0-10.0 x10(3)/uL] 11.0 x10(3)/uL *HI* (12/03/21 2:40 PM) BUN [6-23 mg/dL] 20 mg/dL (12/03/21 2:40 PM) Calcium Lvl [8.6-10.2 mg/dL] 10.8 mg/dL *HI* (12/03/21 2:40 PM) Chloride [98-107 mmol/L] 100 mmol/L (12/03/21 2:40 PM) Potassium Lvl [3.5-5.1 mmol/L] 4.0 mmol/ L (12/03/21 2:40 PM) Influenza A (Influenza/RSV) -GeneXpert [ Negative] Negative (12/03/21 2:40 PM) Influenza B (Influenza/RSV) [Negative] N egative (12/03/21 2:40 PM) Lymph Absolute [1.20-3.70 x10(3)/uL] 2.9 6 x10(3)/uL (12/03/21 2:40 PM) Gilchrist Absolute [0.20-0.40 x10(3)/uL] 1.10 x10(3)/uL *HI* (12/03/21 2:40 PM) Eos Absolute [0.04-0.54 x10(3)/uL] 0.26 x10(3)/uL (12/03/21 2:40 PM) NRBC Absolute [0.00-0.01 x10(3)/uL] 0.00 x10(3)/uL (12/03/21 2:40 PM) Neutro Absolute [1.56-6.13 x10(3)/uL] 6. 58 x10(3)/uL *HI* (12/03/21 2:40 PM) RDW-CV [11.7-14.4 %] 14.6 % *HI* (12/03/21 2:40 PM) GFR NonAfrican Ethiopian [>=60 mL/min/1.7 3 m2] 81 mL/min/1.73 m2 (12/03/21 2:40 PM) Human Chorionic Gonadotropin Qualitative Negative (12/03/21 11:30 PM) RSV (Flu/RSV) -GeneXpert [Negative] Nega tive (12/03/21 2:40 PM) SARS-CoV-2 (COVID-19) PCR (GeneXpert) [N egative] Positive 1 *CRIT* (12/03/21 2:40 PM) Immature Gran % [0.00-2.30 %] 0.50 % (12/03/21 2:40 PM) Immature Gran Absolute 0.05 x10(3)/uL *NA* (12/03/21 2:40 PM) Basophil Absolute [0.00-0.10 x10(3)/uL] 0.09 x10(3)/uL (12/03/21 2:40 PM) Employed in healthcare? No *NA* (12/03/21 2:40 PM) Symptomatic as defined by CDC? No *NA* (12/03/21 2:40 PM) Hospitalized due to COVID-19? No *NA* (12/03/21 2:40 PM) In ICU? No *NA* (12/03/21 2:40 PM) Group care resident? No *NA* (12/03/21 2:40 PM) status? Not *NA* (12/03/21 2:40 PM) 1Result Comment: Critical result notified/readback to Marti Shaw at ER by Celina Venegas at 12/03/2021 15:47:32 EST. Radiology Reports * Exam Date Time Procedure Performing Provider Status 12/03/21 8:37 PM XR Chest 1 View Portable [place], Alyssa e; Auth (Verified) Notes: (XR Chest 1 View Portable) Reason For Exam: Cough XR Chest 1 View Portable EXAMINATION: XR Chest 1 View Portable CLINICAL HISTORY: Cough TECHNIQUE: AP portable upright radiograph of the chest COMPARISON: None FINDINGS: Hazy peripheral opacity in the left lower lung obscuring the lateral cardiac margin and hemidiaphragm. Low lung volumes contributing to crowding of the bronchovascular structures. Cardiac size exaggerated by technique. No pneumothorax. Blunting of the left costophrenic angle. Remodeling and irregularity of the left medial humeral head, question prior injury. IMPRESSION: Low lung volume exam limited by patient habitus. Hazy peripheral opacity in the left lower lung, prominent overlying soft tissues versus pneumonia less likely. Layering pleural effusion also possible. Preliminary report signed by a [facility] Chicken Picker or Fellow: Sebastian Bentley at 12/03/2021 9:17 PM I have personally reviewed the image(s) and the resident's interpretation and agree with the findings, Hamzah Maki MD at 12/03/2021 10:31 PM Thank you for letting us participate in the care of this patient. If you are a health care provider and have any questions regarding this report, please contact the number below. For patients who have questions please contact the health wound care technician that requested your imaging first. Final Dictated: 12/03/2021 10:31 pm HAMZAH MAKI Signed (Electronic Signature): 12/03/2021 10:31 pm Signed by: HAMZAH MAKI * Exam Date Time Procedure Performing Provider Status 12/03/21 3:[address] Head or Brain w/o Contrast Pilar Briones; Claire Notes: (CT Head or Brain w/o Contrast) Reason For Exam: AMS, uncertain if trauma CT Head or Brain w/o Contrast --------ADDENDUM #1-------- EXAMINATION: CT Head or Brain w/o Contrast CLINICAL HISTORY: AMS, uncertain if trauma TECHNIQUE: CT head performed without intravenous contrast administration. COMPARISON: None FINDINGS: This is limited examination. The supratentorial brain was imaged entirely. The cerebellum was not imaged completely. There is no evidence for intra-axial or extra-axial collections of blood or fluid, cortical infarction, or mass effect within the supratentorial brain. The oakes-white matter differentiation is preserved. The ventricles are normal in size. There is no evidence of midline shift. IMPRESSION: Limited examination without acute intracranial hemorrhage or other significant posttraumatic abnormalities within the supratentorial brain. The cerebellum is not entirely visualized and presence of posttraumatic abnormalities of the cerebellum cannot be excluded. Thank you for letting us participate in the care of this patient. If you are a health care provider and have any questions regarding this report, please contact the number below. For patients who have questions please contact the health wound care technician that requested your imaging first. --------ORIGINAL REPORT -------- EXAMINATION: CT Head or Brain w/o Contrast CLINICAL HISTORY: AMS, uncertain if trauma TECHNIQUE: CT head performed without intravenous contrast administration. COMPARISON: None FINDINGS: This is limited examination. The supratentorial brain was imaged entirely. The cerebellum was not imaged completely. There is no evidence for intra-axial or extra-axial collections of blood or fluid, cortical infarction, or mass effect within the supratentorial brain. The oakes-white matter differentiation is preserved. The ventricules are normal in size. There is no evidence of midline shift. IMPRESSION: Limited examination with acute intracranial hemorrhage or other significant posttraumatic abnormalities within the supratentorial brain. Thank you for letting us participate in the care of this patient. If you are a health care provider and have any questions regarding this report, please contact the number below. For patients who have questions please contact the health wound care technician that requested your imaging first. Final Dictated: 12/03/2021 3:59 pm ANDI GUILLEN Signed (Electronic Signature): 12/03/2021 3:59 pm Signed by: ANDI GUILLEN CT Head or Brain w/o Contrast EXAMINATION: CT Head or Brain w/o Contrast CLINICAL HISTORY: AMS, uncertain if trauma TECHNIQUE: CT head performed without intravenous contrast administration. COMPARISON: None FINDINGS: This is limited examination. The supratentorial brain was imaged entirely. The cerebellum was not imaged completely. There is no evidence for intra-axial or extra-axial collections of blood or fluid, cortical infarction, or mass effect within the supratentorial brain. The oakes-white matter differentiation is preserved. The ventricules are normal in size. There is no evidence of midline shift. IMPRESSION: Limited examination with acute intracranial hemorrhage or other significant posttraumatic abnormalities within the supratentorial brain. Thank you for letting us participate in the care of this patient. If you are a health care provider and have any questions regarding this report, please contact the number below. For patients who have questions please contact the health wound care technician that requested your imaging first. Final Dictated: 12/03/2021 3:42 pm ANDI GUILLEN Signed (Electronic Signature): 12/03/2021 3:42 pm Signed by: ANDI GUILLEN * Exam Date Time Procedure Performing Provider Status 12/03/21 3:[address] Spine Cervical w/o Contrast Anny Briones; Rosana (Verified) Notes: (CT Spine Cervical w/o Contrast) Reason For Exam: AMS, uncertain if trauma CT Spine Cervical w/o Contrast EXAMINATION: CT Spine Cervical w/o Contrast CLINICAL HISTORY: AMS, uncertain if trauma TECHNIQUE: CT cervical spine performed without intravenous contrast administration. COMPARISON: None FINDINGS: This examination is markedly limited due to motion artifact. We were able to image the base of the skull and C1-C2 level. The remaining portions of the cervical spine were not imaged due to patient's lack of cooperation. The base of the skull appears grossly unremarkable with no posttraumatic abnormalities. C1 and C2 vertebra are intact. The odontoid process of C2 appears intact. IMPRESSION: Markedly limited evaluation as above. Thank you for letting us participate in the care of this patient. If you are a health care provider and have any questions regarding this report, please contact the number below. For patients who have questions please contact the health wound care technician that requested your imaging first. Final Dictated: 12/03/2021 3:39 pm ANDI GUILLEN Signed (Electronic Signature): 12/03/2021 3:39 pm Signed by: ANDI GUILLEN Vital Signs Most recent to oldest [Reference Range]: 1 2 3 Temperature Temporal [36.3-37.8 DegC] 36.6 DegC (12/03/21 11:32 PM) 36.5 DegC (12/03/21 8:57 PM) 36.2 DegC *LOW* (12/03/21 2:28 PM) Peripheral Pulse Rate [60-100 bpm] 72 bpm (12/04/21 1:57 AM) 77 bpm (12/04/21 12:39 AM) 88 bpm (12/03/21 11:55 PM) Heart Rate Monitored [60-100 bpm] 66 bpm (12/03/21 11:55 PM) 72 bpm (12/03/21 11:37 PM) 81 bpm (12/03/21 11:32 PM) Respiratory Rate [14-20 br/min] 20 br/min (12/03/21 7:03 PM) 21 br/min *HI* (12/03/21 6:32 PM) 23 br/min *HI* (12/03/21 5:45 PM) Blood Pressure [90-140/60-90 mmHg] 134/77mmHg (12/04/21 1:57 AM) 120/66mmHg (12/04/21 12:39 AM) 125/79mmHg (12/03/21 11:55 PM) Mean Arterial Pressure, Cuff [65-100 mmHg] 96 mmHg (12/04/21 1:57 AM) 84 mmHg (12/04/21 12:39 AM) 94 mmHg (12/03/21 11:55 PM) Mean Arterial Pressure Cuff-Monitor 91 mmHg (12/04/21 1:57 AM) 84 mmHg (12/04/21 12:39 AM) 93 mmHg (12/03/21 11:55 PM) SpO2 [92-100 %] 95 % (12/04/21 1:57 AM) 95 % (12/04/21 12:39 AM) 93 % (12/03/21 11:55 PM) Oxygen Activity Initiate (12/04/21 1:57 AM) Height/Length Estimated 170.000 cm (12/03/21 2:28 PM) Height/Length Dosing 170.000 cm (12/03/21 2:32 PM) Weight Estimated 130.000 kg (12/03/21 2:28 PM) Weight Dosing 130.000 kg (12/03/21 2:32 PM) Social History Social History Type Response Smoking Status 10 or more cigarette s (1/2 pack or more)/day in last 30 days entered on: 08/23/21 Sex Hospital Discharge Instructions Patient Education 12/04/2021 03:11:07 General Discharge (CHALO) Please read all of the information that accompanies these instructions. You came to the emergency department after you were found in the grocery store parking lot behavingin a confused manner. Your condition improved in the ED so you were evaluated by the mental health crisis provider who felt that you were safe to go home. We agreed with their recommendation. As part of your evaluation, a COVID test was performed and POSITIVE. As we discussed, you must isolate for 10 days from today. In 10 days, if your symptoms have improved and you are not having fevers, you may discontinue your isolation. Please seek medical care or return to the emergency department if you develop a new or concerning symptom. We are open 24 hours a day, 7 days a week. 12/04/2021 03:11:07 ED COVID-19 Discharge Instructions (BERNABE) (BERNABE) Positive COVID test [facility] COVID information, July 2021 ??? Your test for COVID-19 has resulted and is positive for COVID ??? You should isolate yourself from others while you are in the contagious time period. o We recommend telling your health care provider (if call not being made by PCP) that you tested positive for COVID-19 and let them know if you have any symptoms that might need evaluation. ??? Get medical care immediately if you have trouble breathing, persistent pain or pressure in the chest, new confusion, inability to wake or stay awake, or changes in color on your lips, gums, face,around the eyes, or nails. Tell health care providers and response personnel that you have COVID-19 and are isolating at home. ??? Someone from the [place] [facility] should be reaching out to you in the next few days to discuss individuals you have come into contact with recently. CONTAGIOUS TIMEFRAME For patients who have symptoms: You can be around others after all three criteria have been met: ??? 10 days since symptoms first appeared??and ??? 24 hours with no fever without the use of fever-reducing medications??and ??? Other symptoms of COVID-19 are improving* *Loss of taste and smell may persist for weeks or months after recovery and need not delay the end of isolation??? For asymptomatic patients: If you continue to have no symptoms, you can be with others after 10 days have passed since you hada positive viral test for COVID-19. (date of test collection, not when test results) Note that these recommendations??do not??apply to people with weakened immune systems (immunocompromised) or those with severe COVID illness. Patients with??severe to critical illness??or who are severely immunocompromised: ??? At least 10 days but up to 20 days have passed??since symptoms first appeared??and ??? At least 24 hours have passed??since last??fever without the use of fever- reducing medications??and ??? Symptoms (e.g., cough, shortness of breath) have improved Patient should consult with PCP or other specialty provider Patients who are??severely immunocompromised??may produce replication- competent virus beyond 20 days after symptom onset or, for those who were asymptomatic throughout their infection, the date of their first positive viral test. Consultation with infectious diseases specialists is recommended. ??Use of a test-based strategy for determining when Transmission-Based Precautions may be discontinued could be considered. HOW TO ISOLATE Most people with mild illness can recover at home. While there is no specific treatment, you shouldget plenty of rest, drink plenty of fluids, and take fever- reducing medication if needed. ??? Stay??home,??except??to??get medical care or if you feel unsafe at home.??Wear a mask??if you need to leave home. ??? Call ahead before visiting your??health care provider or emergency department and tell them youare isolating because you have COVID-19. ??? As much as possible, stay in a specific room in your home and use a separate bathroom. ??? Stay at least 6 feet (or 2 meters) away from others in your home at all times. ??? Wear a mask if you???re in any room with other people or pets, unless you have trouble breathing. ??? Don???t share household items. ??? Monitor your blood oxygen levels. People diagnosed with COVID-19 may have below-normal levels of oxygen in their blood before they feel short of breath. Finding low oxygen levels early can help you know to seek medical care sooner. This could make the disease less severe. The Health Department will offer you a free pulse oximeter (a device that measures the oxygen level??in your blood) to useat home. ??? If you cannot avoid close contact??with someone you take care of (for example your children), then they should quarantine while you are sick. They should also??quarantine??for 14 days??after??youhave recovered. Learn more about??close contacts and quarantine on the CDC website. CDC information: https://www.cdc.gov/coronavirus/2019-ncov/di-uom-gzb-sick/index.html Follow Up Care 12/03/2021 14:23:10 With:[facility]CRS Address: [address] [place] [id number] [facility] (1) When:1 to 2 days Comments:Call for followup appointment as needed With:PCP Referral Address: N/A [facility] (1) When:1 to 2 days Comments:Call for followup appointment
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
--- OUTSIDE RECORDS SUMMARY | 2023-02-01 12:12 | XMS_ITS | Continuity of Care Document ---
Author Name Unknown Organization [facility] Address [address] [place] [id number] Care Team Providers Care Cokeman Name Role Phone XIAO IRENE Primary Care Physician [phone] Encounter BVT Date(s): 04/19/22 - 04/19/22 [place] [address] [place] [id number] Encounter Diagnosis Vitamin D deficiency(Discharge Diagnosis) - 04/19/22 Need for vaccination(Discharge Diagnosis) - 04/19/22 Tobacco user(Discharge Diagnosis) - 04/19/22 Body mass index [BMI] 50.0-59.9, adult(Discharge Diagnosis) - 04/19/22 Pedal edema(Discharge Diagnosis) - 04/19/22 Morbid obesity with BMI of 50.0-59.9, adult(Discharge Diagnosis) - 04/19/22 Pre-diabetes(Discharge Diagnosis) - 04/19/22 Discharge Disposition: Home Attending Physician: XIAO IRENE Allergies, Adverse Reactions, Alerts Substance Reaction Severity Status Pollen Mild Active varenicline Unknown Active Haldol Unknown Active Assessment and Plan Future Appointments Functional Status 04/19/22 COVID-19 Screening None Immunizations Given and Recorded Vaccine Date Status Refusal Reason Tdap 04/19/22 Given SARS-CoV-2 (COVID-19) mRNA-1273 vaccine 11/29/21 R ecorded SARS-CoV-2 (COVID-19) Ad26 vaccine 08/02/21 Record ed Medications hydroCHLOROthiazide 12.5 mg oral capsule 12.5 mg = 1 cap(s), Oral, Daily, # 30 cap(s), 0 Refill(s), Pharmacy: [facility],1 cap(s) Oral Daily, 166, cm, 04/08/22 23:34:00 EDT, Height/Length Dosing, 150, kg, 04/08/22 23:34:00 EDT, Weight Dosing Start Date: 04/19/22 Status: Ordered hydrOXYzine 0 Refill(s) Start Date: 08/23/21 Status: Ordered Keto Keto, Diet pill, 0 Refill(s) Start Date: 03/19/22 Status: Ordered Multi Vitamin+ 0 Refill(s) Start Date: 04/19/22 Status: Ordered Nicotine System Kit transdermal film, extended release See Instructions, APPLY DIRECTED, # 1 patch(es), 0 Refill(s), Pharmacy: [facility], APPLY DIRECTED, 166, cm, 04/08/22 23:34:00 EDT, Height/Length Dosing, 150, kg, 04/08/22 23:34:00 EDT, Weight Dosing Start Date: 04/19/22 Status: Ordered OLANZapine 0 Refill(s) Start Date: 08/23/21 Status: Ordered semaglutide 3 mg oral tablet 3 mg = 1 tab(s), Oral, Daily, # 30 tab(s), 0 Refill(s), Pharmacy: [facility], 1 tab(s) Oral Daily, 166, cm, 04/08/22 23:34:00 EDT, Height/Length Dosing, 150, kg, 04/08/22 23:34:00 EDT, Weight Dosing Start Date: 04/19/22 Status: Ordered TEGretol QID, 0 Refill(s) Start Date: 03/05/22 Status: Ordered traZODone Oral, BID, 0 Refill(s) Start Date: 04/19/22 Status: Ordered Vitamin D 1000 0 Refill(s) Start Date: 03/05/22 Status: Ordered Vitamin D2 1.25 mg (50,000 intl units) oral capsule 50,000 IntUnit = 1 cap(s), Oral, 2x/Wk, # 30 cap(s), 0 Refill(s), Pharmacy: [facility], 1 cap(s) Oral 2x/Wk, 166, cm, 04/08/22 23:34:00 EDT, Height/Length Dosing, 150, kg, 04/08/2223:34:00 EDT, Weight Dosing Start Date: 04/19/22 Status: Ordered Problem List Condition Effective Dates Status Health Status Inform ant Bipolar 1 disorder(Confirmed) Active Morbid obesity with BMI of 5 0.0-59.9, adult(Confirmed) Active Body mass index [BMI] 50.0-5 9.9, adult(Confirmed) Active Central obesity(Confirmed) Active Pedal edema(Confirmed) Active Family history of diabetes mellitus(Confirmed) Active Irregular menses(Confirmed) Active Establishing care with ely modi, encounter for(Confirmed) Active Pre-diabetes(Confirmed) Active PTSD (post-traumatic stress disorder)(Confirmed) Active Tobacco user(Confirmed) Active Vitamin D deficiency(Confirmed) Active Vital Signs Most recent to oldest [Reference Range]: 1 Temperature Tympanic [36.6-38.1 DegC] 36 .8 DegC (04/19/22 10:08 AM) Peripheral Pulse Rate [60-100 bpm] 82 bp m (04/19/22 10:08 AM) Blood Pressure [90-140/60-90 mmHg] 124/6 8mmHg (04/19/22 10:08 AM) BP Site Right arm (04/19/22 10:08 AM) Pulse Site Pulse Oximetry (04/19/22 10:08 AM) SpO2 [92-100 %] 98 % (04/19/22 10:08 AM) Weight 150.3 kg (04/19/22 10:08 AM) Weight Measured (lbs) 331.354 lb (04/19/22 10:08 AM) Social History Social History Type Response Tobacco Current everyday tob acco user Tobacco Use:. 1 ppd per day. Sex Hospital Discharge Instructions Patient Education 04/19/2022 13:12:45 Diabetes Basics Diabetes Basics Diabetes (diabetes mellitus) is a long-term (chronic) disease. It occurs when the body does not properly use sugar (glucose) that is released from food after you eat. Diabetes may be caused by one or both of these problems: ??? Your pancreas does not make enough of a hormone called insulin. ??? Your body does not react in a normal way to insulin that it makes. Insulin lets sugars (glucose) go into cells in your body. This gives you energy. If you have diabetes, sugars cannot get into cells. This causes high blood sugar (hyperglycemia). Follow these instructions at home: How is diabetes treated? You may need to take insulin or other diabetes medicines daily to keep your blood sugar in balance.Take your diabetes medicines every day as told by your doctor. List your diabetes medicines here: Diabetes medicines ??? Name of medicine: ??? Amount (dose): Time (a.m./p.m.): Notes: ??? Name of medicine: ??? Amount (dose): Time (a.m./p.m.): Notes: ??? Name of medicine: ??? Amount (dose): Time (a.m./p.m.): Notes: If you use insulin, you will learn how to give yourself insulin by injection. You may need to adjust the amount based on the food that you eat. List the types of insulin you use here: Insulin ??? Insulin type: ??? Amount (dose): Time (a.m./p.m.): Notes: ??? Insulin type: ??? Amount (dose): Time (a.m./p.m.): Notes: ??? Insulin type: ??? Amount (dose): Time (a.m./p.m.): Notes: ??? Insulin type: ??? Amount (dose): Time (a.m./p.m.): Notes: ??? Insulin type: ??? Amount (dose): Time (a.m./p.m.): Notes: How do I manage my blood sugar? Check your blood sugar levels using a blood glucose monitor as directed by your doctor. Your doctor will set treatment goals for you. Generally, you should have these blood sugar levels: ??? Before meals (preprandial): 80???130 mg/dL (4.4???7.2 mmol/L). ??? After meals (postprandial): below 180 mg/dL (10 mmol/L). ??? A1c level: less than 7%. Write down the times that you will check your blood sugar levels: Blood sugar checks ??? Time: Notes: ??? Time: Notes: ??? Time: Notes: ??? Time: Notes: ??? Time: Notes: ??? Time: Notes: What do I need to know about low blood sugar? Low blood sugar is called hypoglycemia. This is when blood sugar is at or below 70 mg/dL (3.9 mmol/L). Symptoms may include: ??? Feeling: ??? Hungry. ??? Worried or nervous (anxious). ??? Sweaty and clammy. ??? Confused. ??? Dizzy. ??? Sleepy. ??? Sick to your stomach (nauseous). ??? Having: ??? A fast heartbeat. ??? A headache. ??? A change in your vision. ??? Tingling or no feeling (numbness) around the mouth, lips, or tongue. ??? Jerky movements that you cannot control (seizure). ??? Having trouble with: ??? Moving (coordination). ??? Sleeping. ??? Passing out (fainting). ??? Getting upset easily (irritability). Treating low blood sugar To treat low blood sugar, eat or drink something sugary right away. If you can think clearly and swallow safely, follow the 15:15 rule: ??? Take 15 grams of a fast-acting carb (carbohydrate). Talk with your doctor about how much you should take. ??? Some fast-acting carbs are: ??? Sugar tablets (glucose pills). Take 3???4 glucose pills. ??? 6???8 pieces of hard candy. ??? 4???6 oz (120???150 mL) of fruit juice. ??? 4???6 oz (120???150 mL) of regular (not diet) soda. ??? 1 Tbsp (15 mL) honey or sugar. ??? Check your blood sugar 15 minutes after you take the carb. ??? If your blood sugar is still at or below 70 mg/dL (3.9 mmol/L), take 15 grams of a carb again. ??? If your blood sugar does not go above 70 mg/dL (3.9 mmol/L) after 3 tries, get help right away. ??? After your blood sugar goes back to normal, eat a meal or a snack within 1 hour. Treating very low blood sugar If your blood sugar is at or below 54 mg/dL (3 mmol/L), you have very low blood sugar (severe hypoglycemia). This is an emergency. Do not wait to see if the symptoms will go away. Get medical help right away. Call your local emergency services (911 in the [place] Do not drive yourself to the hospital. Questions to ask your health care provider ??? Do I need to meet with a nurse educator? What equipment will I need to care for myself at home? What diabetes medicines do I need? When should I take them? How often do I need to check my blood sugar? What number can I call if I have questions? When is my next doctor's visit? Where can I find a support group for people with diabetes? Where to find more information ??? [place] [employer]: www.diabetes.org ??? [place] [employer]: www.diabeteseducator.org/patient-resources Contact a doctor if: ??? Your blood sugar is at or above 240 mg/dL (13.3 mmol/L) for 2 days in a row. ??? You have been sick or have had a fever for 2 days or more, and you are not getting better. ??? You have any of these problems for more than 6 hours: ??? You cannot eat or drink. ??? You feel sick to your stomach (nauseous). ??? You throw up (vomit). ??? You have watery poop (diarrhea). Get help right away if: ??? Your blood sugar is lower than 54 mg/dL (3 mmol/L). ??? You get confused. ??? You have trouble: ??? Thinking clearly. ??? Breathing. Summary ??? Diabetes (diabetes mellitus) is a long-term (chronic) disease. It occurs when the body does notproperly use sugar (glucose) that is released from food after digestion. ??? Take insulin and diabetes medicines as told. ??? Check your blood sugar every day, as often as told. ??? Keep all follow-up visits as told by your doctor. This is important. This information is not intended to replace advice given to you by your health care provider. Make sure you discuss any questions you have with your health care provider. Document Revised: 07/19/2020 Document Reviewed: 01/29/2019 ElseRegisterPatient Patient Education ?? 2020 [employer] Follow Up Care 04/19/2022 09:51:31 With:XIAO IRENE Address: [address] [place] [address] [facility] [place] [phone]- When:2 to 4 weeks Care Team Personnel Name: XIAO IRENE Address: [facility] [address]
--- OUTSIDE RECORDS SUMMARY | 2023-02-01 12:12 | XMS_ITS | Continuity of Care Document ---
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 including: ??? Blood tests. ??? Imaging tests. How is this treated? Treatment for this condition may include: ??? Medicines, such as antibiotic medicines or medicines to treat allergies (antihistamines). ??? Supportive care, such as rest and application of cold or warm cloths (compresses) to the skin. ??? Hospital care, if the condition is severe. The infection usually starts to get better within 1???2 days of treatment. Follow these instructions at home: Medicines ??? Take qdlk-mdr-whsrgtj and prescription medicines only as told by your health care provider. ??? If you were prescribed an antibiotic medicine, take it as told by your health care provider. Donot stop taking the antibiotic even if you start to feel better. General instructions ??? Drink enough fluid to keep your urine pale yellow. ??? Do not touch or rub the infected area. ??? Raise (elevate) the infected area above the level of your heart while you are sitting or lying down. ??? Apply warm or cold compresses to the affected area as told by your health care provider. ??? Keep all follow-up visits as told by your health care provider. This is important. These visitslet your health care provider make sure a more serious infection is not developing. Contact a health care provider if: ??? You have a fever. ??? Your symptoms do not begin to improve within 1???2 days of starting treatment. ??? Your bone or joint underneath the infected area becomes painful after the skin has healed. ??? Your infection returns in the same area or another area. ??? You notice a swollen bump in the infected area. ??? You develop new symptoms. ??? You have a general ill feeling (malaise) with muscle aches and pains. Get help right away if: ??? Your symptoms get worse. ??? You feel very sleepy. ??? You develop vomiting or diarrhea that persists. ??? You notice red streaks coming from the infected area. ??? Your red area gets larger or turns dark in color. These symptoms may represent a serious problem that is an emergency. Do not wait to see if the symptoms will go away. Get medical help right away. Call your local emergency services (911 in the [place] Do not drive yourself to the hospital. Summary ??? Cellulitis is a skin infection. This condition occurs most often in the arms and lower legs. ??? Treatment for this condition may include medicines, such as antibiotic medicines or antihistamines. ??? Take efzj-jrf-vbvkhwf and prescription medicines only as told by your health care provider. If you were prescribed an antibiotic medicine, do not stop taking the antibiotic even if you start to feel better. ??? Contact a health care provider if your symptoms do not begin to improve within 1???2 days of starting treatment or your symptoms get worse. ??? Keep all follow-up visits as told by your health care provider. This is important. These visitslet your health care provider make sure that a more serious infection is not developing. This information is not intended to replace advice given to you by your health care provider. Make sure you discuss any questions you have with your health care provider. Document Revised: 11/06/2020 Document Reviewed: 03/18/2019 [employer] Patient Education ?? 2020 [employer] Follow Up Care 05/13/2022 17:26:40 With:Onofre Ceron Address:Unknown When: Unknown Comments:Please call the podiatry office in the morning to arrange for the earliest available follow-up appointment.Please return directly to the emergency department should any of your symptoms change or worsen. With:XIAO IRENE Address: [address] [place] [address] [place] [address]- Business (1) When: Unknown Care Team Personnel Name: XIAO IRENE Address: [address] [place], [place] [address]ju[place], [place] [address]
--- OUTSIDE RECORDS SUMMARY | 2023-02-01 12:12 | XMS_ITS | Continuity of Care Document ---
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 Name Role Phone ABDIRAHMANROMEEfrainXIAO Primary Care Physician Encounter BVT Date(s): 05/22/22 - 05/22/[address] [place] [address] Encounter Diagnosis Fissured skin(Discharge Diagnosis) - 05/23/22 Pre-diabetes(Discharge Diagnosis) - 05/23/22 Onychomycosis(Discharge Diagnosis) - 05/23/22 Pedal edema(Discharge Diagnosis) - 05/23/22 Discharge Disposition: Home Attending Physician: Onofre Ceron DPM Allergies, Adverse Reactions, Alerts Substance Reaction Severity Status Pollen Mild Active varenicline Unknown Active Haldol Unknown Active Assessment and Plan Future Appointments Immunizations Given and Recorded Vaccine Date Status Refusal Reason Tdap 04/19/22 Given SARS-CoV-2 (COVID-19) mRNA-1273 vaccine 11/29/21 R ecorded SARS-CoV-2 (COVID-19) Ad26 vaccine 08/02/21 Record ed Medications !-Keflex 500 mg oral capsule 500 mg = 1 cap(s), Oral, QID, # 28 cap(s), 0 Refill(s), Pharmacy: [id number], 1 cap(s) Oral QID,x7 day(s), 166, cm, [...] Daily, # 90 cap(s), 3 Refill(s), Pharmacy: [facility] #[id number], 1cap(s) Oral Daily, 166, cm, 05/13/22 17:41:00 [...] DIRECTED, # 1 patch(es), 0 Refill(s), [facility]: [facility] [address] [facility], APPLY DIRECTED, 166, cm, 04/08/22 23:34:00 EDT, Height/Length Dosing, 150, kg, 04/08/22 23:34:00 EDT, Weight Dosing Start Date: 04/19/22 Status: Ordered Nicotine System Kit transdermal film, extended release See Instructions, APPLY DIRECTED, # 1 kit(s), 0 Refill(s), Pharmacy: [facility] [address] APPLY DIRECTED, 166, cm, 04/08/22 [...] Daily, # 30 tab(s), 0 Refill(s), Pharmacy: [facility], 1 tab(s) Oral [...] 2x/Wk, # 30 cap(s), 0 Refill(s), Pharmacy: [facility], 1 cap(s) Oral [...] Active Family history of diabetes mellitus(Confirmed) Active Fissured skin(Confirmed) Active Insomnia(Confirmed) 3 Active Irregular menses(Confirmed) Active Onychomycosis(Confirmed) Active Establishing care with ely modi, encounter for(Confirmed) Active Pre-diabetes(Confirmed) Active PTSD (post-traumatic stress disorder)(Confirmed) Active Tobacco user(Confirmed) Active Vitamin D deficiency(Confirmed) [facility] Vital Signs Most recent to oldest [Reference Range]: 1 Peripheral Pulse Rate [60-100 bpm] 89 bp m (05/22/22 2:11 PM) Respiratory Rate [14-20 br/min] 16 br/mi n (05/22/22 2:11 PM) Blood Pressure [90-140/60-90 mmHg] 130/7 8mmHg (05/22/22 2:11 PM) SpO2 [92-100 %] 97 % (05/22/22 2:11 PM) Weight 150 kg (05/22/22 2:11 PM) Weight Measured (lbs) 330.693 lb (05/22/22 2:11 PM) Social History Social History Type Response Tobacco Current everyday tob acco user Tobacco Use:. 1 ppd per day. Sex Care Team Personnel Name: XIAO IRENE Address: [address] [place] [id number]
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
--- OUTSIDE RECORDS SUMMARY | 2023-02-01 12:12 | XMS_ITS | Continuity of Care Document ---
Author Name Unknown Organization Formerly [facility] Address [address] [place] [phone] Care Team Providers Care Religion Professor Name Role Phone XIAO IRENE Primary Care Physician Encounter BVT Date(s): 03/19/22 - 03/19/22 [address] [address] [place] [phone] Encounter Diagnosis Establishing care with new doctor, encounter for(Discharge Diagnosis) - 03/19/22 Body mass index [BMI] 50.0-59.9, adult(Discharge Diagnosis) - 03/19/22 Central obesity(Discharge Diagnosis) - 03/19/22 Bipolar 1 disorder(Discharge Diagnosis) - 03/19/22 PTSD (post-traumatic stress disorder)(Discharge Diagnosis) - 03/19/22 Pedal edema(Discharge Diagnosis) - 03/19/22 Family history of diabetes mellitus(Discharge Diagnosis) - 03/19/22 Morbid obesity with BMI of 50.0-59.9, adult(Discharge Diagnosis) - 03/19/22 Irregular menses(Discharge Diagnosis) - 03/19/22 Discharge Disposition: Home Attending Physician: XIAO IRENE Allergies, Adverse Reactions, Alerts Substance Reaction Severity Status Pollen Mild Active varenicline Unknown Active Haldol Unknown Active Assessment and Plan Extracted from: Title:PCP: Establish Care Author:XIAO IRENE Date:03/19/22 Depression Screen?? PHQ 2?? Little Interest - Pleasure in Activities: Not at all Feeling Down, Depressed, Hopeless: Not at all Initial Depression Screen Score: 0 1.??Establishing care with n doctor, encounter for??Z76.89 Continue Presents meds Please bring in the supplement you are taking for wt loss Get fasting labs F/U one month and PRN ? 2.??Bipolar 1 disorder??F31.9 Continue to work with your case mgr and HCRS ?? 3.??PTSD (post-traumatic stress disorder)??F43.10 ?? 4.??Irregular menses??N92.6 Ordered: ?? 5.??Morbid obesity with BMI of 50.0-59.9, adult??E66.01 Ordered: ?? 6.??Family history of diabetes mellitus??Z83.3 Given morbid obesity predominantly central and irregular menses will order testosterone level and Insulin levels. ?? 7.??Pedal edema??R60.0 ?? 8.??Central obesity??E65 Ordered: ?? Body mass index [BMI] 50.0-59.9, adult??Z68.43 Ordered: ?? Orders: Future Appointments Future Scheduled Tests Laboratory* Hemoglobin A1c DC 03/19/22 * Insulin [facility] 03/19/22 * TSH [place] 03/19/22 * Comprehensive Metabolic Panel Standard 03/19/22 * Lipid Panel Standard 03/19/22 * CBC w/Diff Standard 03/19/22 * Testosterone, Total and Free [place]ICHOLS 03/19/22 * T3 Free 03/19/22 * Free T4 03/19/22 * Vitamin D, 25-Hydroxy 03/19/22 * Hep C Ab 03/19/22 Radiology* XR Wrist 3 Views Min Rt 11/08/21 Functional Status 03/19/22 COVID-19 Screening None Medications hydrOXYzine 0 Refill(s) Start Date: 08/23/21 Status: Ordered Keto Keto, Diet pill, 0 Refill(s) Start Date: 03/19/22 Status: Ordered Lasix 20 mg oral tablet = 1 cap(s), Oral, Daily, # 2 cap(s), 0 Refill(s), [facility]: [facility] [place] [address]. UNIT #, 1 cap(s)Oral Daily,x2 day(s), 170, [...] 03-DEC-2021 14:35:00 EST tested positive for COVID-19. Vital Signs Most recent to oldest [Reference Range]: 1 Temperature Tympanic [36.6-38.1 DegC] 37 .4 DegC (03/19/22 10:49 AM) Peripheral Pulse Rate [60-100 bpm] 88 bp m (03/19/22 10:49 AM) Blood Pressure [90-140/60-90 mmHg] 120/7 0mmHg (03/19/22 10:49 AM) SpO2 [92-100 %] 99 % (03/19/22 10:49 AM) Height 166 cm (03/19/22 10:49 AM) Height/Length Measured (inches) 65.4 in (03/19/22 10:49 AM) Weight 141.3 kg (03/19/22 10:49 AM) Weight Measured (lbs) 311.513 lb (03/19/22 10:49 AM) BSA Measured 2.55 m2 (03/19/22 10:49 AM) Body Mass Index 51.28 kg/m2 (5/10/22 10:49 AM) Social History Social History Type Response Smoking Status 10 or more cigarette s (1/2 pack or more)/day in last 30 days entered on: 08/23/21 Sex Hospital Discharge Instructions Patient Education 03/19/2022 11:00:53 Health Maintenance, Female Health Maintenance, Female Adopting a healthy lifestyle and getting preventive care are important in promoting health and wellness. Ask your health care provider about: ??? The right schedule for you to have regular tests and exams. ??? Things you can do on your own to prevent diseases and keep yourself healthy. What should I know about diet, weight, and exercise? Eat a healthy diet ??? Eat a diet that includes plenty of vegetables, fruits, low-fat dairy products, and lean protein. ??? Do not eat a lot of foods that are high in solid fats, added sugars, or sodium. Maintain a healthy weight Body mass index (BMI) is used to identify weight problems. It estimates body fat based on height and weight. Your health care provider can help determine your BMI and help you achieve or maintain a healthy weight. Get regular exercise Get regular exercise. This is one of the most important things you can do for your health. Most adults should: ??? Exercise for at least 150 minutes each week. The exercise should increase your heart rate and make you sweat (moderate-intensity exercise). ??? Do strengthening exercises at least twice a week. This is in addition to the moderate-intensityexercise. ??? Spend less time sitting. Even light physical activity can be beneficial. Watch cholesterol and blood lipids Have your blood tested for lipids and cholesterol at 20 years of age, then have this test every 5 years. Have your cholesterol levels checked more often if: ??? Your lipid or cholesterol levels are high. ??? You are older than 40 years of age. ??? You are at high risk for heart disease. What should I know about cancer screening? Depending on your health history and family history, you may need to have cancer screening at various ages. This may include screening for: ??? Breast cancer. ??? Cervical cancer. ??? Colorectal cancer. ??? Skin cancer. ??? Lung cancer. What should I know about heart disease, diabetes, and high blood pressure? Blood pressure and heart disease ??? High blood pressure causes heart disease and increases the risk of stroke. This is more likely to develop in people who have high blood pressure readings, are of descent, or are overweight. ??? Have your blood pressure checked: ??? Every 3???5 years if you are 18???39 years of age. ??? Every year if you are 40 years old or older. Diabetes Have regular diabetes screenings. This checks your fasting blood sugar level. Have the screening done: ??? Once every three years after age 40 if you are at a normal weight and have a low risk for diabetes. ??? More often and at a younger age if you are overweight or have a high risk for diabetes. What should I know about preventing infection? Hepatitis B If you have a higher risk for hepatitis B, you should be screened for this virus. Talk with your health care provider to find out if you are at risk for hepatitis B infection. Hepatitis C Testing is recommended for: ??? Everyone born from 1945 through 1965. ??? Anyone with known risk factors for hepatitis C. Sexually transmitted infections (STIs) ??? Get screened for STIs, including gonorrhea and chlamydia, if: ??? You are sexually active and are younger than 24 years of age. ??? You are older than 24 years of age and your health care provider tells you that you are at riskfor this type of infection. ??? Your sexual activity has changed since you were last screened, and you are at increased risk for chlamydia or gonorrhea. Ask your health care provider if you are at risk. ??? Ask your health care provider about whether you are at high risk for HIV. Your health care provider may recommend a prescription medicine to help prevent HIV infection. If you choose to take medicine to prevent HIV, you should first get tested for HIV. You should then be tested every 3 months for as long as you are taking the medicine. ??? If you are about to stop having your period (premenopausal) and you may become , seek counseling before you get . ??? Take 400 to 800 micrograms (mcg) of folic acid every day if you become . ??? Ask for control (contraception) if you want to prevent . Osteoporosis and menopause Osteoporosis is a disease in which the bones lose minerals and strength with aging. This can resultin bone fractures. If you are 65 years old or older, or if you are at risk for osteoporosis and fractures, ask your health care provider if you should: ??? Be screened for bone loss. ??? Take a calcium or vitamin D supplement to lower your risk of fractures. ??? Be given hormone replacement therapy (HRT) to treat symptoms of menopause. Follow these instructions at home: Lifestyle ??? Do not use any products that contain nicotine or tobacco, such as cigarettes, e-cigarettes, andchewing tobacco. If you need help quitting, ask your health care provider. ??? Do not use street drugs. ??? Do not share needles. ??? Ask your health care provider for help if you need support or information about quitting drugs. Alcohol use ??? Do not drink alcohol if: ??? Your health care provider tells you not to drink. ??? You are , may be , or are planning to become . ??? If you drink alcohol: ??? Limit how much you use to 0???1 drink a day. ??? Limit intake if you are . ??? Be aware of how much alcohol is in your drink. In the [place] one drink equals one 12 oz bottle of beer (355 mL), one 5 oz glass of wine (148 mL), or one 1?? oz glass of hard liquor (44 mL). General instructions ??? Schedule regular health, dental, and eye exams. ??? Stay current with your vaccines. ??? Tell your health care provider if: ??? You often feel depressed. ??? You have ever been abused or do not feel safe at home. Summary ??? Adopting a healthy lifestyle and getting preventive care are important in promoting health and wellness. ??? Follow your health care provider's instructions about healthy diet, exercising, and getting tested or screened for diseases. ??? Follow your health care provider's instructions on monitoring your cholesterol and blood pressure. This information is not intended to replace advice given to you by your health care provider. Make sure you discuss any questions you have with your health care provider. Document Revised: 10/20/2019 Document Reviewed: 10/20/2019 [employer] Patient Education ?? 2020 [employer]. Follow Up Care 03/19/2022 10:34:58 With:XIAO IRENE Address: [address] [place] [address]- When:1 month Care Team Personnel Name: XIAO IRENE Address: [address] [place] [address] [place], [place] [address]
--- OUTSIDE RECORDS SUMMARY | 2023-02-01 12:12 | XMS_ITS | Continuity of Care Document ---
Author Name Unknown Organization [facility] Address [address] [place] [phone] Care Team Providers Care Dental Office Receptionist Name Role Phone XIAO IRENE Primary Care Physician Encounter BVT Date(s): 10/02/22 - 10/02/[address] [place] [address] Discharge Disposition: Home Attending Physician: Onofre Ceron DPEzra Allergies, Adverse Reactions, Alerts Substance Reaction Severity [...] QID, # 28 cap(s), 0 Refill(s), Pharmacy: [facility] #[id number], 1 cap(s) Oral QID,x7 day(s), 166, cm, 05/13/22 17:41:00 EDT, Height/Length Dosing, 150, kg, 05/13/22 17:41:00 EDT, Weight Dosing Start Date: 05/13/22 Stop Date: 05/20/22 Status: Ordered carBAMazepine 200 mg oral tablet = 2 tab(s), Oral, BID, # 120 tab(s), 0 Refill(s), Pharmacy: [facility] #[id number], TAKE 2 TABLETS BY MOUTH TWICE DAILY, 166, cm, 05/13/22 17:41:00 EDT, Height/Length Dosing, 150, kg, 05/13/22 17:41:00 EDT, Weight Dosing Start Date: 09/10/22 Status: Ordered docusate sodium 100 mg oral [...] Daily, # 90 cap(s), 3 Refill(s), Pharmacy: [facility] #[id number], 1cap(s) Oral Daily, 166, cm, 05/13/22 17:41:00 [...] DIRECTED, # 1 patch(es), 0 Refill(s), [facility], APPLY DIRECTED, 166, cm, 04/08/22 23:34:00 EDT, Height/Length Dosing, 150, kg, 04/08/22 23:34:00 EDT, Weight Dosing Start Date: 04/19/22 Status: Ordered Nicotine System Kit transdermal film, extended release See Instructions, APPLY DIRECTED, # 1 kit(s), 0 Refill(s), [facility]: [facility] UNIT#, APPLY DIRECTED, 166, cm, [...] Daily, # 30 tab(s), 0 Refill(s), [facility] [place] [address] UNIT #, 1 tab(s) Oral Daily, 166, cm, 04/08/22 23:34:00 EDT, Height/Length Dosing, 150, kg, 04/08/22 23:34:00 EDT, Weight Dosing Start Date: 04/19/22 Status: Ordered spironolactone 25 mg oral tablet 25 mg = 1 tab(s), Oral, Daily, # 30 tab(s), 1 Refill(s), Pharmacy: [facility] #[id number], 1 tab(s) Oral Daily, 166, cm, 05/13/22 17:41:00 EDT, Height/Length Dosing, 150, kg, 05/13/22 17:41:00 EDT, Weight Dosing Start Date: 07/12/22 Status: Ordered traZODone 50 mg oral tablet = 1 tab(s), Oral, Once a day (at bedtime), # 30 tab(s), 0 Refill(s), Pharmacy: [facility]#[id number], TAKE 1 TABLET BY MOUTH EVERY DAY [...] # 30 cap(s), 0 Refill(s), [facility]: [facility] [place] [address]. UNIT #, 1 cap(s) Oral 2x/Wk, 166, cm, 04/08/22 23:34:00 EDT, Height/Length Dosing, 150, kg, 04/08/2223:34:00 EDT, Weight Dosing Start Date: 04/19/22 Status: Ordered Problem List Condition Confirmation Course Effective Dates [...] Irregular menses Confirmed Active Onychomycosis Confirmed Active Establishing care with new doctor, encounter for Confirmed Active Pre-diabetes Confirmed Active PTSD (post-traumatic stress disorder) Confirmed Active Tobacco user Confirmed Active Vitamin D deficiency Confirmed Active [facility]HCounts include 234 beds at the [facility] - 2HCounts include 234 beds at the [facility] - 3HCounts include 234 beds at the [facility] - Vital Signs Most recent to oldest [Reference Range]: 1 Height 166 cm (10/02/22 2:43 PM) Height/Length Measured (inches) 65.4 in (10/02/22 2:43 PM) Weight 150 kg (10/02/22 2:43 PM) Weight Measured (lbs) 330.693 lb (10/02/22 2:43 PM) BSA Measured 2.63 m2 (10/02/22 2:43 PM) Body Mass Index 54.43 kg/m2 (10/02/22 2:43 PM) Social History Social History Type Response Tobacco Current everyday tob acco user Tobacco Use:. 1 ppd per day. Sex Patient Care team information Personnel Name: ABDIRAHMANROMEEfrainXIAO Address: Address: [address] [place] [address]
--- OUTSIDE RECORDS SUMMARY | 2023-02-01 12:12 | XMS_ITS | Continuity of Care Document ---
Author Name Unknown Organization [facility] Address [address] [place] [id number] Care Team Providers Care Food Trades Assistants Name Role Phone XIAO IRENE Primary Care Physician Encounter BVT Date(s): 11/16/22 - 11/16/[address] [address] [phone] Discharge Disposition: Left without being seen Attending Physician: MILLIE LANE Admitting Physician: MILLIE LANE Allergies, Adverse Reactions, Alerts Substance Reaction Severity Status Pollen Mild Active varenicline Unknown Active Haldol Unknown Active Assessment and Plan Future Appointments Future Scheduled Tests Laboratory* Hemoglobin A1c DC 11/04/22 * Comprehensive Metabolic Panel Standard 11/04/22 Immunizations Given and Recorded Vaccine Date Status Refusal Reason Tdap 04/19/22 Given SARS-CoV-2 (COVID-19) mRNA-1273 vaccine 11/29/21 R ecorded SARS-CoV-2 (COVID-19) Ad26 vaccine 08/02/21 Record ed Medications !-Keflex 500 mg oral capsule 500 mg = 1 cap(s), Oral, QID, # 28 cap(s), 0 Refill(s), Pharmacy: [facility] #[id number], 1 cap(s) Oral QID,x7 day(s), 166, cm, [...] BID, # 120 tab(s), 0 Refill(s), [facility]acy: [facility] #[id number], 2 tab(s) Oral BID, 166, cm, 05/13/22 [...] Daily, # 90 cap(s), 3 Refill(s), Pharmacy: [facility] #[id number], 1cap(s) Oral Daily, 166, cm, 05/13/22 17:41:00 [...] DIRECTED, # 1 patch(es), 0 Refill(s), [facility]: [facility] UN[address] #, APPLY DIRECTED, 166, cm, 04/08/22 23:34:00 EDT, Height/Length Dosing, 150, kg, 04/08/22 23:34:00 EDT, Weight Dosing Start Date: 04/19/22 Status: Ordered Nicotine System Kit transdermal film, extended release See Instructions, APPLY DIRECTED, # 1 kit(s), 0 Refill(s), [facility]: [facility] UNIT#, APPLY DIRECTED, 166, cm, [...] Daily, # 30 tab(s), 0 Refill(s), Pharmacy: [address] UNIT #, 1 tab(s) Oral Daily, 166, cm, 04/08/22 23:34:00 EDT, Height/Length Dosing, 150, kg, 04/08/22 23:34:00 EDT, Weight Dosing Start Date: 04/19/22 Status: Ordered spironolactone 25 mg oral tablet 25 mg = 1 tab(s), Oral, Daily, # 90 tab(s), 1 Refill(s), Pharmacy: [facility] #[id number], 1 tab(s) Oral Daily, 166, cm, 05/13/22 17:41:00 EDT, Height/Length Dosing, 150, kg, 05/13/22 17:41:00 EDT, Weight Dosing Start Date: 10/17/22 Status: Ordered traZODone 50 mg oral tablet = 1 tab(s), Oral, Once a day (at bedtime), # 30 tab(s), 0 Refill(s), Pharmacy: [facility]#[id number], TAKE 1 TABLET BY MOUTH EVERY DAY [...] 2x/Wk, # 30 cap(s), 0 Refill(s), Pharmacy: [address] UNIT #, 1 cap(s) Oral [...] Confirmed Active Vitamin D deficiency Confirmed Active [address] [place] [address] [facility] Social History Social History Type Response Tobacco Current everyday tob acco user Tobacco Use:. 1 ppd per day. Sex Nurse Progress note * Rose Avila RN: PERFORM Event Display: Progress Note-Nurse Authored Date: Pt presented to the emergency department via EMS complaining of leg pain/rash. Upon arrival, the patient was shouting at the EMS workers stating that they, stole and went through my plaid wallet. Iexplained to the patient that we had not seen a plaid wallet, but we could check the ambulance. I asked the patient if we could get her settled into a patient care room, however she said multiple times, I refuse to be seen at this facility! Unstrap me from this stretcher now! At this time, the patient denied suicidal and homicidal ideation. She stated that I was, Asking too many questions, and that she, does not trust anyone at this facility. EMS removed the straps from the stretcher, personal belongings were given back to the patient and she was shown the exit. The patient walked to the front entrance and sat on the bench. Clau Martinez RN called [facility] and asked them to help remove the patient from the property and get home safely. [Electronically Signed on: 11/16/2022 22:41 EST] Rose Avila RN [Verified on: 11/16/2022 22:41 EST] Rose Avila RN Patient Care team information Personnel Name: XIAO IRENE Address: Address: [address] [place] [address] [place], [place] [address]
--- OUTSIDE RECORDS SUMMARY | 2023-02-01 12:12 | XMS_ITS | Continuity of Care Document ---
Author Name Unknown Organization [facility] Address [address] [place] [id number] Care Team Providers Care Supervisor Special Services Name Role Phone ABDIRAHMANXIAO ACE Primary Care Physician [phone] Encounter BVT Date(s): 03/05/22 - 03/05/[address] [address]- [phone] Discharge Disposition: Left AMA or Discontinued Care Attending Physician: Mark Vallejo Admitting Physician: Mark Vallejo Allergies, Adverse Reactions, Alerts Substance Reaction Severity Status Pollen Mild Active varenicline Unknown Active Haldol Unknown Active Assessment and Plan Future Appointments Future Scheduled Tests Radiology* XR Wrist 3 Views Min Rt 11/08/21 Functional Status 03/05/22 Recent Travel History No recent travel COVID-19 Screening None Medications hydrOXYzine 0 Refill(s) Start Date: 08/23/21 Status: Ordered OLANZapine 0 Refill(s) Start Date: 08/23/21 Status: Ordered spironolactone Oral, 0 Refill(s) Start Date: 08/23/21 Status: Ordered TEGretol QID, 0 Refill(s) Start Date: 03/05/22 Status: Ordered Vitamin D 1000 0 Refill(s) Start Date: 03/05/22 Status: Ordered Mental Status 03/05/22 Level of Consciousness Alert Problem List Condition [...] Temporal Artery [36.3-37.8 D egC] 36.4 DegC (03/05/22 8:28 PM) Peripheral Pulse Rate [60-100 bpm] 90 bp m (03/05/22 8:28 PM) Respiratory Rate [14-20 br/min] 16 br/mi n (03/05/22 8:28 PM) Blood Pressure [90-140/60-90 mmHg] 155/8 6mmHg *HI* (03/05/22 8:28 PM) SpO2 [92-100 %] 98 % (03/05/22 8:28 PM) Height/Length Estimated 170.000 cm (03/05/22 8:28 PM) Height/Length Dosing 170.000 cm (03/05/22 8:37 PM) Weight Estimated 122.000 kg (03/05/22 8:28 PM) Weight Dosing 122.000 kg (03/05/22 8:37 PM) Social History Social History Type Response Smoking Status 10 or more cigarette s (1/2 pack or more)/day in last 30 days entered on: 08/23/21 Sex Care Team Personnel Name: XIAO IRENE Address: [address] [place], [place] [address]
== END 2023-02-01 12:09 | disposition home or self-care (01) ==
PROVIDERS: Emergency Provider Nurse Practitioner Family
DX: L29.9 Pruritus, unspecified (principal); S05.92XA Unspecified injury of left eye and orbit, initial encounter; F06.4 Anxiety disorder due to known physiological condition
CPT/HCPCS: 99283; 99284